=== PATIENT | female | born 1935 | race Caucasian/White ===

== ENCOUNTER 2023-08-20 23:24 | Inpatient (IN) ==
--- NOTE | 2023-08-21 00:21 | Emergency Department Note ---
Impression & Plan CHI (closed head injury), Atrial fibrillation, Radius distal fracture, Bradycardic cardiac arrest, Hematoma, Fall ED Provider Note ED Provider Note NAME: KE LYNN AGE:88 SEX: Female : 1935 ARRIVES VIA: EMS INFORMANT: Patient ED PROVIDER(s): Anel Munoz DO CHIEF COMPLAINT: Fall, head trauma, right wrist injury HPI: This is an 88-year-old female presents emerged department after an axonal fall at home. Patient states she was attempting to close her storm door and had to temporarily let go of her walker which she typically uses for ambulation. After struggling to close this she went to return to her walker and became off balance and fell backwards. Patient states she felt well and in her usual state of health prior to this. Patient concerned as she does take Xarelto due to history of atrial fibrillation. She denies any loss of consciousness. Patient states she has pain at the right wrist and is right-hand dominant. She also has pain at the right hip and right shoulder. PAST MEDICAL HISTORY:See Below PAST SURGICAL HISTORY:See Below FAMILY HISTORY:See Below SOCIAL HISTORY:See Below HOME MEDICATIONS:See Below ALLERGIES:See Below VITALS:See Below PHYSICAL EXAMINATION: GENERAL: alert, well appearing, well nourished, no distress, non-toxic HEAD: nc, small contusion noted to the occipital region, no evidence of facial trauma, no layne signs, no raccoon eyes EYE EXAM: normal conjunctiva, PERRL and EOM's grossly intact OROPHARYNX: no exudate, no erythema, lips, buccal mucosa, and tongue normal and mucous membranes are moist NECK: supple, no nuchal rigidity, no adenopathy, non-tender LUNGS: Clear to auscultation. Normal chest wall mechanics, no w/r/r HEART: no murmurs, S1 normal and S2 normal ABDOMEN: abdomen soft, non-tender, normo-active bowel sounds, no masses, no rebound or guarding. PELVIS: Stable to compression BACK: Back is symmetrical on inspection and there is no deformity, no midline tenderness, no CVA tenderness. SKIN: no rashes, petechiae, orbruising UPPER EXTREMITIES: upper extremities are grossly normal. FROM LUE, nml pulses b/l. Obvious swelling and pain with palpation along radial aspect of wrist and base of right thumb, sensation intact, nml cap refill, no other evidence of trauma or RUE more proximally. LOWER EXTREMITIES: No pitting edema. FROM, nml pulses b/l. Pain with palpation over the posterior aspect of the right hip. Well-healed vertical midline incisions consistent with prior surgeries noted to bilateral knees. Chronic deformities noted to the feet bilaterally and additional well-healed surgical incisions noted from prior foot/ankle surgery as well NEURO EXAM: Normal sensorium, cranial nerves II-XII grossly intact, normal speech, no facial droop,nogross weakness of arms, no gross weakness of legs. Gross sensation intact. No ataxia. Vital Signs: reviewed and remarkable Differential Diagnosis: CHI, ICH, occult fracture, contusion, dislocation, spinal cord injury, solid organ injury, syncope, dehydration, occult infection, LETY, dysrhythmia, as well as others were considered MEDICAL DECISION MAKING: This is an 88 yo female who presents after an accidental at home. She does use xarelto given hx of a.fib and did strike her head. She denied LOC. She was also concerned for right wrist injury. Labs drawn and sent, IV established, EKG and CXR performed and interpreted at bedside, and patient placed on telemetry. She was afebrile and VS stable. She was started on gentle IVF hydration and sent for CT head/xcpinse. Upon return while having xrays performed at bedside, she experienced a brief bradycardic cardiac arrest and quick ROSC and return to baseline mentation. Additional IVF given, atropine and bicarb given, and due to hypotension while continuing to evaluate cause including r/o significant trauma, she was started on levophed. Case discussed with hospitalist and ICU FLYER REPAIRER at bedside. Additional labs, abg, and CT imaging added. Patient remained stable following this and remained at her baseline mentation. She was sent to CT for additional studies on her way to the ICU. Splint placed on right wrist while in the ER prior to transport due to radius fx noted on xray per my interpretation. Patient neurovascularly intact. Consultation(s): 0200: Discussed with Dr. Sweeney and with Fox Montoya NP for additional evaluation and ICU mgmt after cardiac arrest in the ER. ER Treatment Provided: See below 0143: Code blue called after patient was having xrays performed in the room and began to cathleen down and reported to catechist "I'm going out". She became unresponsive and became asystolic. CPR started by staff and code blue called. Patient received 10-15 seconds of chest compressions and regained pulse and consciousness. She was given atropine and bedside and additional IVF started. She had already had CT head/cspine. These were quickly reviewed by myself at bedside and no obvious ICH noted. Patient denied any evolving symptoms upon regarding consciousness. Repeat EKG without changes and patient still in a.fib. She then became more bradycardic and bicarb given and levophed added after discussion with hospitalist and ICU FLYER REPAIRER. BP improved. Given event, POC BMP and POC abg ordered by myself. CT chest/abd/pelvis also added given concern for additional occult trauma although no abdominal pain on bedside exam and POCUS performed by ICU FLYER REPAIRER without any significant findings. Diagnostics Interpreted By Me: -ECG: atrial fibrillation at 63, nml axis, nml intervals, nonspecific ST/T wave changes -Cardiac Monitoring: An order was placed for continuous cardiac monitoring. The monitor shows a rate of 59 with atrial fibrillation rhythm. -Laboratory studies: As stated above and show below. -Imaging studies: X-ray Chest: A single view study of the chest was reviewed and was negative for cardiomegaly, focal infiltrate, effusion, pulmonary edema, or wide mediastinum. No rib fx or pneumothorax. xr pelvis: no obvious fx/dislocation Triage Nursing Note Reviewed Prior/Outside Records Reviewed Critical Care: Critical care of 65 min performed to assess and manage high likelihood of life- threatening cardiac arrest, involving labs and imaging performed with assessment to evaluate cardiac arrest and trauma with frequent reassessment. This time includes bedside time, treatment discussions with patient/family/consultants, documentation time and excludes procedure time. Past Med/Surg History Problem List (Updated 08/22/23 @ 10:29 by Anel Munoz DO) Fall (Acute) Hematoma (Acute) Bradycardic cardiac arrest (Acute) Atrial fibrillation (Acute) Syncope Pulmonary nodule Status post fall Chronic anticoagulation Radius distal fracture (Acute) Admitted to intensive care unit Hypotension Bradycardia Afib CHI (closed head injury) (Acute) Medical History Glaucoma Surgical History History of colon resection Social History Smoking Status: Unknown if ever smoked Hx Alcohol Use: Yes Alcohol type: beer and wine Hx Substance Use: No Preferred Language: Yi Communication Ability: Effective Law Tutor Required: No Beliefs That Will Affect Care: None Current Living Situation: Spouse Feels Safe at Home: Yes Assistive Devices: Glasses, Walker and Wheelchair Allergies Allergies Allergy/AdvReac Type Severity Reaction Status Date / Time Penicillins Allergy Unknown Verified 08/21/23 01:31 Sulfa (Sulfonamide Allergy Unknown Verified 08/21/23 01:31 Antibiotics) Home Meds Home Medications Medication Instructions Recorded Confirmed brimonidine 0.1 % eye drops 1 drp OPB .IN AM & DINNERTIME 08/21/23 08/21/23 dronedarone 400 mg tablet (Multaq) 400 mg PO BID 08/21/23 08/21/23 lisinopril 10 mg tablet 10 mg PO HS 08/21/23 08/21/23 rivaroxaban 15 mg tablet (Xarelto) 15 mg PO DAILY 08/21/23 08/21/23 Results & Data (ED) Vital Signs Vital Signs - 24 hr 08/20/23 23:55 08/21/23 00:01 Temperature 36.4 C L Temperature Source Oral Pulse Rate 65 66 Pulse Rhythm Regular Pulse Strength Normal Respiratory Rate 21 Respiratory Effort / Characteristics Non-Labored Respiratory Depth Normal Respiratory Pattern Regular Blood Pressure 138/83 Blood Pressure Mean 101 Blood Pressure Position Lying Pulse Oximetry 94 Oxygen Delivery Method Room Air Sepsis Recent Fever Within 48 Hours No Sepsis New/Unexplained Change in Mental Status N/A Sepsis Action Taken by Nursing No Action Required Laboratory Data 08/22/23 04:47 08/22/23 04:47 Lab Results 08/21/23 08/21/23 Range/Units 00:40 02:06 WBC 5.99 (4.8-10.8) K/ul RBC 4.00 L (4.20-5.40) M/uL Hgb 13.5 (12.0-16.0) g/dl POC Hgb 10.2 L (12.0-16.0) g/dl Hct 40.5 (37.0-47.0) % POC Hct 30 L (37-47) % MCV 101.3 H (80.0-100.0) fL MCH 33.8 (25.0-34.0) pg MCHC 33.3 (32.0-36.0) g/dL RDW Std Deviation 52.2 H (36.4-46.3) fL RDW Coeff of Jordan 14.0 (11.5-14.5) % Plt Count 180 (130-400) K/uL MPV 10.4 (9.4-12.4) fL Immature Gran % (Auto) 1.0 % Neut % (Auto) 65.0 % Lymph % (Auto) 24.7 % [place] % (Auto) 7.0 % Eos % (Auto) 1.3 % Baso % (Auto) 1.0 % Neut # (Auto) 3.89 (1.40-6.50) K/uL Lymph # (Auto) 1.48 (1.20-3.40) K/uL [place] # (Auto) 0.42 (0.11-0.59) K/uL Eos # (Auto) 0.08 (0.00-0.50) K/uL Baso # (Auto) 0.06 (0.00-0.20) K/uL Immature Gran # (Auto) 0.06 (0.01-0.20) K/uL PT 11.8 (9.0-12.0) Seconds INR 1.1 (0.9-1.1) POC pH 7.44 (7.35-7.45) POC pCO2 38 (35-46) mmHg POC pO2 124 H (80-95) mmHg POC HCO3 26 H (19-24) walter/L POC Total CO2 27 (24-31) mmol/L POC Base Excess 1.0 (-9-1.8) walter/L POC ABG O2 Sat 99.0 H (90-95) % POC Sodium 143 (135-144) mmol/L Sodium 140 (136-145) mmol/L POC Potassium 3.6 (3.3-5.0) mmol/L Potassium 4.5 (3.5-5.1) mmol/L Chloride 106 (98-107) mmol/L Carbon Dioxide 25 (21-32) mmol/L Anion Gap 9 (3-11) BUN 29 H (6-23) mg/dl Creatinine 0.97 (0.6-1.2) mg/dl Est Cr Clr Drug Dosing 38.3 ml/min Est GFR ( Amer) 60.0 ml/min Est GFR (Non-Af Amer) 51.8 ml/min BUN/Creatinine Ratio 29.9 H (10-20) Glucose 107 H (70-99(Fasting)) mg/dl Calcium 10.1 (8.6-10.3) mg/dl Total Bilirubin 0.5 (0.2-1.0) mg/dl AST 18 (13-39) U/L ALT 9 (7-52) U/L Alkaline Phosphatase 83 (34-104) U/L Troponin I High Sens 5.5 (0-14) pg/ml Total Protein 6.6 (6.0-8.3) gm/dl Albumin 3.9 (3.4-5.0) gm/dl Globulin 2.7 (2.5-4.0) gm/dl Albumin/Globulin Ratio 1.4 (0.9-2) TSH 2.734 (0.300-4.500) uIu/ml Administered Medications Acetaminophen (Acetaminophen 500 Mg Tab) 500 mg PO Q4H PRN PRN Reason: Pain or Fever Stop: 09/20/23 12:55 Last Admin: 08/22/23 08:33 Dose: 500 mg Documented By: Admin: 08/21/23 21:58 Dose: 500 mg Documented By: Admin: 08/21/23 13:11 Dose: 500 mg Documented By: GABRIELA Azelastine HCl (Azelastine Hcl 0.1% Nasal 200 Sprays/27,400 Mcg Btl) 1 sprays NA BID [facility] Stop: 09/20/23 20:59 Last Admin: 08/22/23 08:35 Dose: 1 sprays Documented By: Admin: 08/21/23 20:29 Dose: 1 sprays Documented By: TEVIN Brimonidine Tartrate (Brimonidine Tar 0.1% 75 Drops/5 Ml Btl) 1 drops OP BID17 [facility] Stop: 09/20/23 17:29 Last Admin: 08/22/23 08:34 Dose: 1 drops Documented By: Admin: 08/21/23 17:18 Dose: 1 drops Documented By: GABRIELA Lidocaine (Lidocaine 5% 1 Patch) 1 patch TD QAM [facility] Stop: 09/20/23 17:29 Last Admin: 08/22/23 08:20 Dose: 1 patch Documented By: Admin: 08/21/23 18:26 Dose: 1 patch Documented By: GABRIELA Miscellaneous (Remove Lidoderm Patch) 1 each N/A DAILY@2100 ENRIQUE Stop: 09/20/23 20:59 Last Admin: 08/21/23 20:30 Dose: 1 each Documented By: TEVIN Oxymetazoline HCl (Oxymetazoline 0.05% 30 Ml Btl) 1 sprays NA BID PRN PRN Reason: Nasal Congestion Stop: 09/20/23 11:27 Last Admin: 08/21/23 13:11 Dose: 1 sprays Documented By: GABRIELA Discontinued Medications Diphenhydramine HCl (Diphenhydramine 50 Mg/Ml Vial) 25 mg IV NOW STA Stop: 08/21/23 03:10 Last Admin: 08/21/23 05:33 Dose: Not Given Documented By: REGINALD Dronedarone (Dronedarone Hcl 400 Mg Tab) 400 mg PO BID ENRIQUE Stop: 09/20/23 08:59 Last Admin: 08/21/23 08:17 Dose: 400 mg Documented By: GABRIELA Sodium Chloride (Nss) 1,000 mls @ 999 mls/hr IV .Q1H1M ONE Stop: 08/21/23 02:54 Last Infusion: 08/21/23 03:00 Dose: Infused Documented By: Admin: 08/21/23 01:50 Dose: 999 mls/hr Documented By: NAVNEET Norepinephrine Bitartrate (Levophed/D5w) 4 mg in 250 mls @ 0 mls/hr IV .Q0M ENRIQUE; Protocol Stop: 09/20/23 01:59 Last Titration: 08/21/23 10:23 Dose: Infused Documented By: Titration: 08/21/23 03:45 Dose: 0 mcg/kg/min, 0 mls/hr Documented By: Titration: 08/21/23 03:30 Dose: 0.03 mcg/kg/min, 8.9 mls/hr Documented By: Admin: 08/21/23 01:50 Dose: 0.05 mcg/kg/min, 14.8 mls/hr Documented By: NAVNEET Co-signed By: RUBA Parenteral Electrolytes (Plasma-Lyte A Ph 7.4) 500 mls @ 999 mls/hr IV .Q31M ONE Stop: 08/21/23 04:05 Last Infusion: 08/21/23 04:10 Dose: Infused Documented By: Admin: 08/21/23 03:30 Dose: 999 mls/hr Documented By: REGINALD Parenteral Electrolytes (Plasma-Lyte A Ph 7.4) 1,000 mls @ 100 mls/hr IV .Q10H ENRIQUE Stop: 09/20/23 03:44 Last Infusion: 08/21/23 10:23 Dose: Infused Documented By: Admin: 08/21/23 09:32 Dose: 100 mls/hr Documented By: Infusion: 08/21/23 09:32 Dose: Infused Documented By: Admin: 08/21/23 04:11 Dose: 100 mls/hr Documented By: REGINALD Ioversol (Optiray 320 100ml) 100 ml IV ONCE ONE Stop: 08/21/23 03:15 Last Admin: 08/21/23 03:14 Dose: 92 ml Documented By: AMALIA Carlisle (Alphagan~Order Awaiting Action) 1 each N/A QS ENRIQUE Stop: 09/20/23 07:59 Last Admin: 08/21/23 17:10 Dose: Not Given Documented By: Admin: 08/21/23 08:22 Dose: Not Given Documented By: GABRIELA Carlisle (Icu Protocol For Hyperglycemia) 1 each N/A ACHS ENRIQUE Stop: 08/23/23 07:29 Last Admin: 08/21/23 08:06 Dose: Not Given Documented By: GABRIELA Norepinephrine Bitartrate (Norepinephrine/D5w 4 Mg/250 Ml) Confirm Administered Dose 4 mg IV .STK-MED ONE Stop: 08/21/23 01:54 Last Admin: 08/21/23 02:59 Dose: Not Given Documented By: AN Discharge Plan Visit Data Chief Complaint: Fall Stated Complaint: FELL, HIT HEAD, WRIST DEFORMITY ED Provider: Anel Munoz Discharge Problem: CHI (closed head injury), Atrial fibrillation, Radius distal fracture, Bradycardic cardiac arrest, Hematoma, Fall Patient Disposition: Admitted As Inpatient Discharge Instructions Interventions: ED Discharge Assessment Last Done: 08/21/23 03:34
[2023-08-21 00:59] LABS: Basophils # (auto) 0.06 K/uL (0.00-0.20); Eosinophils # (auto) 0.08 K/uL (0.00-0.50); Eosinophils % (auto) 1.3 %; Hematocrit (blood only) 40.5 % (37.0-47.0); Hemoglobin 13.5 g/dl (12.0-16.0); Immature Granulocytes # (auto) 0.06 K/uL (0.01-0.20); Lymphocytes # (auto) 1.48 K/uL (1.20-3.40); Lymphocytes % (auto) 24.7 %; Mean Corpuscular Hemoglobin 33.8 pg (25.0-34.0); Mean Corpuscular Hgb Conc 33.3 g/dL (32.0-36.0); Mean Corpuscular Volume 101.3 fL (80.0-100.0); Mean Platelet Volume 10.4 fL (9.4-12.4); Monocytes # (auto) 0.42 K/uL (0.11-0.59); Neutrophils # (auto) 3.89 K/uL (1.40-6.50); Platelet Count 180 K/uL (130-400); RDW Standard Deviation 52.2 fL (36.4-46.3); White Blood Count 5.99 K/ul (4.8-10.8)
[2023-08-21 01:15] LABS: Albumin Globulin Ratio 1.4 (0.9-2); Albumin Level 3.9 gm/dl (3.4-5.0); BUN Creatinine Ratio 29.9 (10-20); Bilirubin,Total 0.5 mg/dl (0.2-1.0); Calcium 10.1 mg/dl (8.6-10.3); Creatinine Clr Calc Pharmacy 38.3 ml/min; Est GFR (Non-African American) 51.8 ml/min; Globulin 2.7 gm/dl (2.5-4.0); Potassium 4.5 mmol/L (3.5-5.1); Total Protein 6.6 gm/dl (6.0-8.3)
[2023-08-21 01:21] LABS: Troponin I High Sensitivity 5.5 pg/ml (0-14)
--- NOTE | 2023-08-21 01:27 | CT Scan Report ---
Exam(s): CT C SPINE EXAM: CT Cervical Spine Without Intravenous Contrast CLINICAL HISTORY: Reason for exam: trauma. TECHNIQUE: Axial computed tomography images of the cervical spine without intravenous contrast. CTDI is 26.61 mGy and DLP is 489.32 mGy-cm. Automated exposure control was utilized for the study. A dose lowering technique was utilized adhering to the principles of ALARA. COMPARISON: No relevant prior studies available. FINDINGS: The vertebral body heights are maintained. The craniocervical junction is intact. The atlanto-dens interval is maintained. The dens is intact. There is no spondylolisthesis. Multilevel cervical spondylosis and degenerative disc disease. Straightening of the cervical lordosis. The unenhanced neck soft tissues are grossly unremarkable. The visualized lung apices are grossly clear. IMPRESSION: No acute fracture or subluxation of the cervical spine. Electronically signed by: Levi Shelby MD 08/21/23 01:26 AM
--- NOTE | 2023-08-21 01:28 | CT Scan Report ---
Exam(s): CT HEAD Without Contrast EXAM: CT Head Without Intravenous Contrast CLINICAL HISTORY: Reason for exam: trauma. TECHNIQUE: Axial computed tomography images of the head/brain without intravenous contrast. CTDI is 37.32 mGy and DLP is 624.41 mGy-cm. Automated exposure control was utilized for the study. A dose lowering technique was utilized adhering to the principles of ALARA. COMPARISON: No relevant prior studies available. FINDINGS: No acute intracranial hemorrhage. No midline shift or mass effect. The territorial gonzales-white matter differentiation is maintained throughout. Age-related cerebral volume loss. Periventricular and subcortical white matter hypoattenuation, consistent with chronic microangiopathy. The visualized orbits appear grossly unremarkable. The calvarium is intact. The visualized paranasal sinuses and mastoid air cells are grossly clear. IMPRESSION: No acute intracranial hemorrhage, midline shift, or mass effect. Electronically signed by: Levi Shelby MD 08/21/23 01:27 AM
[2023-08-21 01:34] LABS: INR 1.1 (0.9-1.1); Prothrombin Time 11.8 Seconds (9.0-12.0)
[2023-08-21] MEDS: SODIUM CHLORIDE 0.9% 1,000 ML IV ONE (01:50)
[2023-08-21] MEDS: NOREPINEPHRINE/D5W 4 MG/250 ML PLCT IV SCH (01:50)
[2023-08-21] MEDS ORDERED: STAT IV Infusion **Titration per Protocol STA (01:56)
--- NOTE | 2023-08-21 02:11 | History & Physical Report ---
Date of Service August 21, 2023 Assessment & Plan (1) Hypotension: (2) Bradycardia: (3) Admitted to intensive care unit: (4) Afib: (5) CHI (closed head injury): (6) Radius distal fracture: (7) Chronic anticoagulation: (8) Status post fall: (9) Pulmonary nodule: Plan Admitted to intensive care unit/bradycardic episode/atrial fibrillation- Required chest compressions to restore heart rate After episcopal, patient had heart rate in the upper 60s to low 70s Patient then minutes later became hypotensive with systolic blood pressure in the 50s to 60s. She was given 1 amp of sodium bicarbonate, 1 L normal saline bolus, and started on Levophed infusion. Patient's blood pressure did return to the 110s to 130s systolic, and was then moved to the ICU, with CT scans en route Will continue dronedarone 400 mg p.o. twice daily, and Xarelto 15 mg p.o. daily Hold lisinopril 10 mg at bedtime The patient will be admitted to the ICU for serial cardiac enzymes, serial EKG's, cardiac rhythm monitoring and a 2-D echocardiogram with Dopplers. CT head without contrast showed chronic small vessel disease CT cervical spine negative Chest x-ray hazy left lower lobe monitor for development of pneumonia X-ray pelvis and hips negative X-ray of radius and ulna shows distal radius fracture Consult to renal dialysis rn and cardiology Distal right radius fracture- Place in splint Follow-up with orthopedics Glaucoma- Continue brimonidine ophthalmic solution Right upper lobe pulmonary nodule- 6 x 5 mm Follow-up per protocol History of Present Illness Chief Complaint: The patient presents to the emergency department after an accidental fall at home, where she was attempting to close her storm door, and lost her balance as she temporarily let go of her walker, and ultimately fell backwards, landing on her buttocks, and hitting the back of her head Primary Care Provider: NO PCP The patient is a 88-year-old female with medical history including atrial fibrillation on chronic anticoagulation, hypertension, and glaucoma. She reports having recently moved to the area. She presents to the emergency department after a fall as noted above. She became concerned about potential injury, due to being on a blood thinner Xarelto. She has had no history of previous falls. Allergies Allergy/AdvReac Type Severity Reaction Status Date / Time Penicillins Allergy Unknown Verified 05/29/24 01:31 Sulfa (Sulfonamide Allergy Unknown Verified 08/21/23 01:31 Antibiotics) Home Medications Medication Instructions Recorded Confirmed Type brimonidine 0.1 % eye drops 1 drp OPB .IN AM & DINNERTIME 08/21/23 08/21/23 History dronedarone 400 mg tablet (Multaq) 400 mg PO BID 08/21/23 08/21/23 History lisinopril 10 mg tablet 10 mg PO HS 08/21/23 08/21/23 History rivaroxaban 15 mg tablet (Xarelto) 15 mg PO DAILY 08/21/23 08/21/23 History Past Med/Surg History Problem List (Updated 08/21/23 @ 05:51 by Alberto Sweeney MD) Pulmonary nodule Status post fall Chronic anticoagulation Radius distal fracture Admitted to intensive care unit Hypotension Bradycardia Afib CHI (closed head injury) (Acute) Medical History (Updated 08/21/23 @ 05:51 by Alberto Sweeney MD) Glaucoma Surgical History (Updated 08/21/23 @ 02:35 by [place]) History of colon resection Social History Smoking Status: Unknown if ever smoked Hx Alcohol Use: Yes Alcohol type: beer and wine Hx Substance Use: No Preferred Language: Mauritian Communication Ability: Effective Welt Edge Rounder Required: No Beliefs That Will Affect Care: None Current Living Situation: Spouse Other Information That Helps Us Care for You: No Feels Safe at Home: Yes Safety Concerns: Feels Safe At This Time Assistive Devices: Glasses, Walker and Wheelchair Review of Systems Review of Systems: The patient denies chest pain, palpitations, shortness of breath, dyspnea on exertion, cough, lower extremity swelling, sore throat, fevers, chills, sweats, nausea, vomiting, diarrhea , constipation, abdominal pain, pelvic pain, blood in urine or stool, dysuria, urinary frequency or urgency, lightheadedness, dizziness, headache, memory loss, loss of consciousness, rash, abnormal bruising or bleeding, focal weakness, numbness or tingling in arms or legs, generalized arthralgias or myalgias, back or neck pain, or night sweats. The review of systems is otherwise negative other than for that already noted above, and at least 10 systems have been reviewed. Physical Exam Physical Exam: The patient is awake, alert and oriented 3, well developed and well nourished, normocephalic and atraumatic. HEENT--PERRL, EOMI, mucous membranes and oropharynx dry. Neck--supple. No JVD. No bruits. Thyroid normal, trachea midline, no adenopathy. Heart--irregularly irregular. No murmurs, rubs or gallops. Lungs--clear bilaterally, no respiratory distress, no accessory muscle use. Abdomen--normal bowel sounds and soft. Nontender. Nondistended. Extremities--no cyanosis or clubbing. No edema. There are good distal pulses b/l. Dermatologic--normal skin turgor, normal color, no abnormal lymph nodes, no rash. Neurologic--cranial nerves II through XII grossly intact. Rheumatologic--normal range of motion. Psychiatric--normal affect. Results & Data Results & Data Vital Signs (Past 12 Hours) Vital Signs Temp Pulse Resp BP Pulse Ox O2 Del Method 08/21/23 01:21 71 08/21/23 01:18 0 L 08/21/23 01:18 0 L 08/21/23 00:01 36.4 C L 66 21 138/83 94 Room Air 08/20/23 23:55 65 Laboratory Results Laboratory Results WBC 10.07 K/ul (4.8-10.8) 08/21/23 04:31 RBC 3.32 M/uL (4.20-5.40) L 08/21/23 04:31 Hgb 11.4 g/dl (12.0-16.0) L 08/21/23 04:31 POC Hgb 10.2 g/dl (12.0-16.0) L 08/21/23 02:06 Hct 34.0 % (37.0-47.0) L 08/21/23 04:31 POC Hct 30 % (37-47) L 08/21/23 02:06 MCV 102.4 fL (80.0-100.0) H 08/21/23 04:31 MCH 34.3 pg (25.0-34.0) H 08/21/23 04:31 MCHC 33.5 g/dL (32.0-36.0) 08/21/23 04:31 RDW Std Deviation 52.4 fL (36.4-46.3) H 08/21/23 04:31 RDW Coeff of [place] 14.0 % (11.5-14.5) 08/21/23 04:31 Plt Count 142 K/uL (130-400) 08/21/23 04:31 MPV 10.2 fL (9.4-12.4) 08/21/23 04:31 Immature Gran % (Auto) 1.1 % 08/21/23 04:31 Neut % (Auto) 86.6 % 08/21/23 04:31 Lymph % (Auto) 7.2 % 08/21/23 04:31 [place] % (Auto) 4.7 % 08/21/23 04:31 Eos % (Auto) 0.1 % 08/21/23 04:31 Baso % (Auto) 0.3 % 08/21/23 04:31 Neut # (Auto) 8.72 K/uL (1.40-6.50) H 08/21/23 04:31 Lymph # (Auto) 0.73 K/uL (1.20-3.40) L 08/21/23 04:31 [place] # (Auto) 0.47 K/uL (0.11-0.59) 08/21/23 04:31 Eos # (Auto) 0.01 K/uL (0.00-0.50) 08/21/23 04:31 Baso # (Auto) 0.03 K/uL (0.00-0.20) 08/21/23 04:31 Immature Gran # (Auto) 0.11 K/uL (0.01-0.20) 08/21/23 04:31 PT 12.3 Seconds (9.0-12.0) H 08/21/23 04:31 INR 1.1 (0.9-1.1) 08/21/23 04:31 APTT 27 Seconds (21-31) 08/21/23 04:31 PTT Ratio 1.0 08/21/23 04:31 POC pH 7.44 (7.35-7.45) 08/21/23 02:06 POC pCO2 38 mmHg (35-46) 08/21/23 02:06 POC pO2 124 mmHg (80-95) H 08/21/23 02:06 POC HCO3 26 walter/L (19-24) H 08/21/23 02:06 POC Total CO2 27 mmol/L (24-31) 08/21/23 02:06 POC Base Excess 1.0 walter/L (-9-1.8) 08/21/23 02:06 POC ABG O2 Sat 99.0 % (90-95) H 08/21/23 02:06 POC Sodium 143 mmol/L (135-144) 08/21/23 02:06 Sodium 140 mmol/L (136-145) 08/21/23 04:31 POC Potassium 3.6 mmol/L (3.3-5.0) 08/21/23 02:06 Potassium 4.0 mmol/L (3.5-5.1) 08/21/23 04:31 Chloride 107 mmol/L (98-107) 08/21/23 04:31 Carbon Dioxide 27 mmol/L (21-32) 08/21/23 04:31 Anion Gap 6 (3-11) 08/21/23 04:31 BUN 24 mg/dl (6-23) H 08/21/23 04:31 Creatinine 0.82 mg/dl (0.6-1.2) 08/21/23 04:31 Est Cr Clr Drug Dosing 45.3 ml/min 08/21/23 04:31 Est GFR ( Amer) 73.5 ml/min 08/21/23 04:31 Est GFR (Non-Af Amer) 63.4 ml/min 08/21/23 04:31 BUN/Creatinine Ratio 29.3 (10-20) H 08/21/23 04:31 Glucose 136 mg/dl (70-99(Fasting)) H 08/21/23 04:31 POC Glucose 149 mg/dl (70-99) H 08/21/23 04:36 Calcium 9.2 mg/dl (8.6-10.3) 08/21/23 04:31 Magnesium 1.8 mg/dl (1.7-2.4) 08/21/23 04:31 Total Bilirubin 0.6 mg/dl (0.2-1.0) 08/21/23 04:31 AST 16 U/L (13-39) 08/21/23 04:31 ALT 11 U/L (7-52) 08/21/23 04:31 Alkaline Phosphatase 77 U/L (34-104) 08/21/23 04:31 Troponin I High Sens 6.9 pg/ml (0-14) 08/21/23 04:31 Total Protein 5.4 gm/dl (6.0-8.3) L 08/21/23 04:31 Albumin 3.4 gm/dl (3.4-5.0) 08/21/23 04:31 Globulin 2.0 gm/dl (2.5-4.0) L 08/21/23 04:31 Albumin/Globulin Ratio 1.7 (0.9-2) 08/21/23 04:31 TSH 2.734 uIu/ml (0.300-4.500) 08/21/23 00:[address] 08/21/23 00:10 Exam(s): CT C SPINE EXAM: CT Cervical Spine Without Intravenous Contrast CLINICAL HISTORY: Reason for exam: trauma. TECHNIQUE: Axial computed tomography images of the cervical spine without intravenous contrast. CTDI is 26.61 mGy and DLP is 489.32 mGy-cm. Automated exposure control was utilized for the study. A dose lowering technique was utilized adhering to the principles of ALARA. COMPARISON: No relevant prior studies available. FINDINGS: The vertebral body heights are maintained. The craniocervical junction is intact. The atlanto-dens interval is maintained. The dens is intact. There is no spondylolisthesis. Multilevel cervical spondylosis and degenerative disc disease. Straightening of the cervical lordosis. The unenhanced neck soft tissues are grossly unremarkable. The visualized lung apices are grossly clear. IMPRESSION: No acute fracture or subluxation of the cervical spine. Electronically signed by: Levi Shelby MD 08/21/23 01:[address] 08/21/23 00:10 Exam(s): CT HEAD Without Contrast EXAM: CT Head Without Intravenous Contrast CLINICAL HISTORY: Reason for exam: trauma. TECHNIQUE: Axial computed tomography images of the head/brain without intravenous contrast. CTDI is 37.32 mGy and DLP is 624.41 mGy-cm. Automated exposure control was utilized for the study. A dose lowering technique was utilized adhering to the principles of ALARA. COMPARISON: No relevant prior studies available. FINDINGS: No acute intracranial hemorrhage. No midline shift or mass effect. The territorial gonzales-white matter differentiation is maintained throughout. Age-related cerebral volume loss. Periventricular and subcortical white matter hypoattenuation, consistent with chronic microangiopathy. The visualized orbits appear grossly unremarkable. The calvarium is intact. The visualized paranasal sinuses and mastoid air cells are grossly clear. IMPRESSION: No acute intracranial hemorrhage, midline shift, or mass effect. Electronically signed by: Levi Shelby MD 08/21/23 01:27 AM Abdomen/Pelvis CT 08/21/23 01:31 Exam(s): CT ABDOMEN + PELVIS With Contrast IV Amt: 93 ml optiray 320 EXAM: CT Chest, Abdomen and Pelvis With Intravenous Contrast CLINICAL HISTORY: Reason for exam: trauma. TECHNIQUE: Axial computed tomography images of the chest, abdomen and pelvis with intravenous contrast. CTDI is 27.93 mGy and DLP is 1195.03 mGy-cm. Automated exposure control was utilized for the study. A dose lowering technique was utilized adhering to the principles of ALARA. CONTRAST: Patient received 93 ml optiray 320 of IV contrast COMPARISON: No relevant prior studies available. FINDINGS: CHEST: Lungs: Right upper lobe pulmonary nodule measuring 6 x 5 mm as seen on series 2, image 31. Scattered areas of air-trapping within the lungs. Findings may be due to phase of expiration. Obstructive pulmonary disease is also possible. Dependent scarring and bronchiectasis at the lung bases which can be seen with infection/aspiration changes. Pleural space: No pneumothorax. No significant effusion. Heart: See below. Mediastinum: Large hiatal hernia. ABDOMEN: Liver: Low attenuation foci in the liver which may be due to cysts but are too small to characterize. Gallbladder and bile ducts: Cholecystectomy changes. No ductal dilation. Pancreas: Unremarkable. No ductal dilation. No mass. Spleen: Unremarkable. No splenomegaly. Adrenals: Unremarkable. No mass. Kidneys and ureters: Bilateral renal cysts mixed. No hydronephrosis. No solid mass. Stomach and bowel: Normal sigmoidectomy changes. Large fat and bowel containing ventral hernia noted overlying the pelvis. No evidence of bowel obstruction. PELVIS: Appendix: No findings to suggest acute appendicitis. Bladder: Unremarkable. No mass. Reproductive: Unremarkable as visualized. CHEST, ABDOMEN and PELVIS: Intraperitoneal space: Enteric anastomosis in the left hemiabdomen. No significant fluid collection. No free air. Bones/joints: Suture anchors at the right humerus. No rib fracture identified. No dislocation. Soft tissues: See above. Vasculature: No evidence of traumatic aortic injury. Please note that the ascending aorta is minimally limited by cardiac pulsation artifact. No aortic aneurysm. Lymph nodes: Unremarkable. No enlarged lymph nodes. IMPRESSION: 1. No acute traumatic findings within the chest, abdomen, or pelvis. If there is further concern for osseous trauma given bone demineralization, consider MRI. 2. No rib fracture identified. 3. No pneumothorax. 4. No evidence of traumatic aortic injury. Please note that the ascending aorta is minimally limited by cardiac pulsation artifact. 5. Right upper lobe pulmonary nodule measuring 6 x 5 mm as seen on series 2, image 31. Fleischner Society Guidelines for low-risk or high- risk patients suggest that no follow-up is necessary. 6. Dependent scarring and bronchiectasis at the lung bases which can be seen with infection/aspiration changes. 7. Other incidental findings as described. Electronically signed by: Jorgito Gutierrez MD 08/21/23 04:[address] 08/21/23 01:31 Exam(s): CT CHEST With Contrast IV Amt: 93 ml optiray 320 EXAM: CT Chest, Abdomen and Pelvis With Intravenous Contrast CLINICAL HISTORY: Reason for exam: trauma. TECHNIQUE: Axial computed tomography images of the chest, abdomen and pelvis with intravenous contrast. CTDI is 27.93 mGy and DLP is 1195.03 mGy-cm. Automated exposure control was utilized for the study. A dose lowering technique was utilized adhering to the principles of ALARA. CONTRAST: Patient received 93 ml optiray 320 of IV contrast COMPARISON: No relevant prior studies available. FINDINGS: CHEST: Lungs: Right upper lobe pulmonary nodule measuring 6 x 5 mm as seen on series 2, image 31. Scattered areas of air-trapping within the lungs. Findings may be due to phase of expiration. Obstructive pulmonary disease is also possible. Dependent scarring and bronchiectasis at the lung bases which can be seen with infection/aspiration changes. Pleural space: No pneumothorax. No significant effusion. Heart: See below. Mediastinum: Large hiatal hernia. ABDOMEN: Liver: Low attenuation foci in the liver which may be due to cysts but are too small to characterize. Gallbladder and bile ducts: Cholecystectomy changes. No ductal dilation. Pancreas: Unremarkable. No ductal dilation. No mass. Spleen: Unremarkable. No splenomegaly. Adrenals: Unremarkable. No mass. Kidneys and ureters: Bilateral renal cysts mixed. No hydronephrosis. No solid mass. Stomach and bowel: Normal sigmoidectomy changes. Large fat and bowel containing ventral hernia noted overlying the pelvis. No evidence of bowel obstruction. PELVIS: Appendix: No findings to suggest acute appendicitis. Bladder: Unremarkable. No mass. Reproductive: Unremarkable as visualized. CHEST, ABDOMEN and PELVIS: Intraperitoneal space: Enteric anastomosis in the left hemiabdomen. No significant fluid collection. No free air. Bones/joints: Suture anchors at the right humerus. No rib fracture identified. No dislocation. Soft tissues: See above. Vasculature: No evidence of traumatic aortic injury. Please note that the ascending aorta is minimally limited by cardiac pulsation artifact. No aortic aneurysm. Lymph nodes: Unremarkable. No enlarged lymph nodes. IMPRESSION: 1. No acute traumatic findings within the chest, abdomen, or pelvis. If there is further concern for osseous trauma given bone demineralization, consider MRI. 2. No rib fracture identified. 3. No pneumothorax. 4. No evidence of traumatic aortic injury. Please note that the ascending aorta is minimally limited by cardiac pulsation artifact. 5. Right upper lobe pulmonary nodule measuring 6 x 5 mm as seen on series 2, image 31. Fleischner Society Guidelines for low-risk or high- risk patients suggest that no follow-up is necessary. 6. Dependent scarring and bronchiectasis at the lung bases which can be seen with infection/aspiration changes. 7. Other incidental findings as described. Electronically signed by: Jorgito Gutierrez MD 08/21/23 04:54 AM Code Status & VTE Plan Code Status Full code VTE Prophylaxis Plan VTE Prophylaxis will be ordered: Yes PG Care Time/CCT Total # of Minutes Spent Total Time Spent with Patient: Total time spent is greater than 50% in coordination of care (as documented) at patient's floor/unit and/or counseling patient: 45 minutes Coding Level of Care Code 31023 INT INP/OBS CARE 3/75MIN Diagnoses Hypotension I95.9 Bradycardia R00.1 Admitted to intensive care unit Z78.9 Afib I48.91 CHI (closed head injury) S09.90XA Radius distal fracture S52.509A Chronic anticoagulation Z79.01 Status post fall Z91.81 Pulmonary nodule R91.1
[2023-08-21 02:21] LABS: iSTAT Arterial Blood Gas HCO3 26 meg/L (19-24); iSTAT Arterial Blood Gas pCO2 38 mmHg (35-46); iSTAT Arterial Blood Gas pH 7.44 (7.35-7.45); iSTAT Arterial Blood Gas pO2 124 mmHg (80-95); iSTAT Carbon Dioxide 27 mmol/L (24-31); iSTAT Hematocrit 30 % (37-47); iSTAT Hemoglobin 10.2 g/dl (12.0-16.0); iSTAT Potassium 3.6 mmol/L (3.3-5.0); iSTAT Sodium 143 mmol/L (135-144)
--- NOTE | 2023-08-21 02:48 | Critical Care Consultation ---
Date of Consultation August 21, 2023 Assessment & Plan (1) Bradycardia: (2) Hypotension: Plan Reason Critically Ill: 88 to the ICU for syncopal/symptomatic bradycardic arrest in the EMD now on vasopressor agent Neuro - S/p Fall to back with head strike CAM ICU: Negative - no focal deficits on exam and conversing normal - head CT negative for acute bleed - follow neurological exams for DASH Cardiac - Symptomatic bradycardia, Hypotension, Afib, chronic anticoagulation - Juan 50s when I arrived and she was awake and talking- she received 1 dose of Atropine with HR back to the 80's/90s - Hypotensive while in EMD requiring initiation of vasopressors- reported 80s/50s- POCUS consistent with hypovolemia- provide crystalloid resuscitation - No pericardial effusion noted on POCUS - ECHO in am - TSH pending - Appreciate cardiology consultation - for her Afib- continue Multaq -- hold xarelto - pending official CT read, however with hematoma on right buttocks on imaging. - ECG is without STEMI Respiratory - No acute needs GI - No acute needs RENAL/LYTES - No acute needs - acid base status normal as well as renal indices - No acute needs - eval urine for possible UTI ENDO - No acute needs - BG goal <180mg/dl- ICU hyperglycemic protocol HEME - No acute needs - follow for evidence of bleeding post fall while on blood thinners - noted hematoma right buttocks ID - NO concern at this time for infective process =- send UA LINES/IV ACCESS - PIV Continue use of these lines DVT PROPHYLAXIS - SCDS, Xarelto DISPO : ICU while on vasopressors I have personally spent 50 minutes of critical care time in the direct management of this patient. This is a life/limb threatening event. This includes time spent evaluating patient, direct bedside care, chart review, placing orders, interpretation of diagnostic studies, discussion with consultants, patient, and family members, as well as other required patient management activities. This time is exclusive of all separately billable procedures, and teaching time and separate from and in addition to any other critical care service time. Thank you for allowing us to participate in the care of this patient. Please refer to my attending physician's documentation for any further recommendations. 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 Patient originally presented to the EMD following a fall backwards at home. She reports that she tripped while trying to reach her walker after shutting the screen door. While she was in the EMD she was noted to syncope and be in bradycardic rythm as well, she received a few CPR pushes and was noted to have a pulse and rythm. She required 1 mg of Atropine and was awake and talking. She initially was worked up with head CT, plain films of wrist, shoulder, hip/pelvis, and CXR. All all negative for bleed and or acute fracture/pneumothorax. Patient reports no symptoms of chest pain at home or feeling as she was going to pass out. She does endorse prior to [facility] being called she told the nurse that she felt like she was "going out" she got cold and shaky and vision started getting fuzzy. She is currently awake, moving all extremities on 4LNC. SHe remained hypotensive in the EMD and was initiated on Levophed for hypotension. She is no longer bradycardic at this point in time. Bedside POCUS performed in the EMD- she is without pericardial effusion, wall motion appears adequate with afib, lung slide is present bilaterally. She does however appear hypovolemic with compressible IVC and hyperdynamic LV. Patient will be admitted to the ICU for continued telemetry and hemodynamic monitoring, continue resuscitation and wean vasopressor agents. Pending ECHO in the am. CODE: FULL Allergies Allergy/AdvReac Type Severity Reaction Status Date / Time Penicillins Allergy Unknown Verified 08/21/23 01:31 Sulfa (Sulfonamide Allergy Unknown Verified 08/21/23 01:31 Antibiotics) Home Medications Medication Instructions Recorded Confirmed Type brimonidine 0.1 % eye drops 1 drp OPB .IN AM & DINNERTIME 08/21/23 08/21/23 History dronedarone 400 mg tablet (Multaq) 400 mg PO BID 08/21/23 08/21/23 History lisinopril 10 mg tablet 10 mg PO HS 08/21/23 08/21/23 History rivaroxaban 15 mg tablet (Xarelto) 15 mg PO DAILY 08/21/23 08/21/23 History Patient History Medical History (Updated 08/21/23 @ 05:51 by Alberto Sweeney MD) Glaucoma Surgical History (Updated 08/21/23 @ 02:35 by [place]) History of colon resection Social History Smoking Status: Unknown if ever smoked Hx Alcohol Use: Yes Alcohol type: beer and wine Hx Substance Use: No Preferred Language: Romanian Communication Ability: Effective Leisure Studies Professor Required: No Beliefs That Will Affect Care: None Current Living Situation: Spouse Other Information That Helps Us Care for You: No Feels Safe at Home: Yes Safety Concerns: Feels Safe At This Time Assistive Devices: Glasses, Walker and Wheelchair Review of Systems Review of Systems: REVIEW OF SYSTEMS: Constitutional: No fever, sweats or chills Eyes: No diplopia, no worsening or blurred vision ENT: normal hearing, no trouble swallowing Respiratory: No cough, sputum, dyspnea at rest or on exertion Cardiovascular: No chest pain, tightness or palpitations Abdomen: (+) chronic diarrhea, No pain, nausea, vomiting, Musculoskeletal: No joint pain, calf pain, swelling Neurologic: (+) balance problems walks with walker, No weakness, numbness/tingling Psychiatric: No anxiety or depression Skin: No rash or itch Physical Exam Physical Exam: PHYSICAL EXAM: General: awake, alert, no apparent distress Head: Normocephalic, atraumatic ENT: PERRLA, EOMI, no pharyngeal exudate, mucous membranes moist Neuro: AAO x 3, speech clear and appropriate, strength intact bilaterally 5/5, sensation intact and equal all extremities and dermatomes, no pronator drift Chest: equal rise and fall of the chest, no accessory muscle use, no heaves or thrills, Clear to auscultation, on room air, Cardiac: iregular rate and rhythm, telemetry reviewed- afib/bradycardia, skin warm dry, cap refill <3 seconds, peripheral pulses +2 no JVD, no murmur, no edema GI: NABS x 4 quadrants, soft, nontender to palpation, no rebound, guarding or tenderness : Spontaneously voiding, no pain, no CVA tenderness, Psych: Normal mood and affect Skin: developing hematoma on right buttocks- correlate with CT abd/pelvis Results & Data Results & Data Vital Signs (Past 12 Hours) Vital Signs Temp Pulse Pulse Resp BP BP Pulse Ox 08/21/23 02:00 73 19 133/83 95 08/21/23 01:55 82 27 H 119/72 94 08/21/23 01:21 71 08/21/23 01:18 0 L 08/21/23 01:18 0 L 08/21/23 00:01 36.4 C L 66 21 138/83 94 08/20/23 23:55 65 O2 Del Method O2 Flow Rate 08/21/23 02:00 Nasal Cannula 4 08/21/23 01:55 Nasal Cannula 4 08/21/23 01:21 08/21/23 01:18 08/21/23 01:18 08/21/23 00:01 Room Air 08/20/23 23:55 Laboratory Results Abnormal lab results 08/21/23 08/21/23 Range/Units 00:40 02:06 RBC 4.00 L (4.20-5.40) M/uL POC Hgb 10.2 L (12.0-16.0) g/dl POC Hct 30 L (37-47) % MCV 101.3 H (80.0-100.0) fL RDW Std Deviation 52.2 H (36.4-46.3) fL POC pO2 124 H (80-95) mmHg POC HCO3 26 H (19-24) walter/L POC ABG O2 Sat 99.0 H (90-95) % BUN 29 H (6-23) mg/dl BUN/Creatinine Ratio 29.9 H (10-20) Glucose 107 H (70-99(Fasting)) mg/dl Diagnostic Findings Cervical Spine CT 08/21/23 00:10 Exam(s): CT C SPINE EXAM: CT Cervical Spine Without Intravenous Contrast CLINICAL HISTORY: Reason for exam: trauma. TECHNIQUE: Axial computed tomography images of the cervical spine without intravenous contrast. CTDI is 26.61 mGy and DLP is 489.32 mGy-cm. Automated exposure control was utilized for the study. A dose lowering technique was utilized adhering to the principles of ALARA. COMPARISON: No relevant prior studies available. FINDINGS: The vertebral body heights are maintained. The craniocervical junction is intact. The atlanto-dens interval is maintained. The dens is intact. There is no spondylolisthesis. Multilevel cervical spondylosis and degenerative disc disease. Straightening of the cervical lordosis. The unenhanced neck soft tissues are grossly unremarkable. The visualized lung apices are grossly clear. IMPRESSION: No acute fracture or subluxation of the cervical spine. Electronically signed by: Levi Shelby MD 08/21/23 01:[address] 08/21/23 00:10 Exam(s): CT HEAD Without Contrast EXAM: CT Head Without Intravenous Contrast CLINICAL HISTORY: Reason for exam: trauma. TECHNIQUE: Axial computed tomography images of the head/brain without intravenous contrast. CTDI is 37.32 mGy and DLP is 624.41 mGy-cm. Automated exposure control was utilized for the study. A dose lowering technique was utilized adhering to the principles of ALARA. COMPARISON: No relevant prior studies available. FINDINGS: No acute intracranial hemorrhage. No midline shift or mass effect. The territorial gonzales-white matter differentiation is maintained throughout. Age-related cerebral volume loss. Periventricular and subcortical white matter hypoattenuation, consistent with chronic microangiopathy. The visualized orbits appear grossly unremarkable. The calvarium is intact. The visualized paranasal sinuses and mastoid air cells are grossly clear. IMPRESSION: No acute intracranial hemorrhage, midline shift, or mass effect. Electronically signed by: Levi Shelby MD 08/21/23 01:27 AM Medications Administered Home Medications brimonidine 0.1 % eye drops 1 drp OPB .IN AM & DINNERTIME 08/21/23 [History Confirmed 08/21/23] dronedarone 400 mg tablet (Multaq) 400 mg PO BID 08/21/23 [History Confirmed 08/21/23] lisinopril 10 mg tablet 10 mg PO HS 08/21/23 [History Confirmed 08/21/23] rivaroxaban 15 mg tablet (Xarelto) 15 mg PO DAILY 08/21/23 [History Confirmed 08/21/23] Active Medications Sodium Chloride (Nss) 1,000 mls @ 999 mls/hr IV .Q1H1M ONE Stop: 08/21/23 02:54 Norepinephrine Bitartrate (Levophed/D5w) 4 mg in 250 mls @ 14.813 mls/hr IV .[id number] [facility]; Protocol Stop: 09/20/23 01:59 ECG Additional Comments: Atrial fibrillation Low voltage QRS Nonspecific T wave abnormality Abnormal ECG When compared with ECG of 18-APR-2023 01:01, No significant change was found Coding Level of Care Code 11521 CRITICAL CARE 1ST 30-74M Diagnoses Bradycardia R00.1 Hypotension I95.9
[2023-08-21] MEDS: NOREPINEPHRINE/D5W 4 MG/250 ML IV ONE (02:59)
[2023-08-21 03:03] LABS: Thyroid Stimulating Hormone 2.734 uIu/ml (0.300-4.500)
[2023-08-21] MEDS: OPTIRAY 320 100ml IV ONE (03:14)
[2023-08-21] MEDS: PLASMA-LYTE A 500 ML IV ONE (03:30)
[2023-08-21] MEDS: PLASMA-LYTE A 1,000 ML IV SCH (04:11)
--- NOTE | 2023-08-21 04:55 | CT Scan Report ---
Exam(s): CT ABDOMEN + PELVIS With Contrast IV Amt: 93 ml optiray 320 EXAM: CT Chest, Abdomen and Pelvis With Intravenous Contrast CLINICAL HISTORY: Reason for exam: trauma. TECHNIQUE: Axial computed tomography images of the chest, abdomen and pelvis with intravenous contrast. CTDI is 27.93 mGy and DLP is 1195.03 mGy-cm. Automated exposure control was utilized for the study. A dose lowering technique was utilized adhering to the principles of ALARA. CONTRAST: Patient received 93 ml optiray 320 of IV contrast COMPARISON: No relevant prior studies available. FINDINGS: CHEST: Lungs: Right upper lobe pulmonary nodule measuring 6 x 5 mm as seen on series 2, image 31. Scattered areas of air-trapping within the lungs. Findings may be due to phase of expiration. Obstructive pulmonary disease is also possible. Dependent scarring and bronchiectasis at the lung bases which can be seen with infection/aspiration changes. Pleural space: No pneumothorax. No significant effusion. Heart: See below. Mediastinum: Large hiatal hernia. ABDOMEN: Liver: Low attenuation foci in the liver which may be due to cysts but are too small to characterize. Gallbladder and bile ducts: Cholecystectomy changes. No ductal dilation. Pancreas: Unremarkable. No ductal dilation. No mass. Spleen: Unremarkable. No splenomegaly. Adrenals: Unremarkable. No mass. Kidneys and ureters: Bilateral renal cysts mixed. No hydronephrosis. No solid mass. Stomach and bowel: Normal sigmoidectomy changes. Large fat and bowel containing ventral hernia noted overlying the pelvis. No evidence of bowel obstruction. PELVIS: Appendix: No findings to suggest acute appendicitis. Bladder: Unremarkable. No mass. Reproductive: Unremarkable as visualized. CHEST, ABDOMEN and PELVIS: Intraperitoneal space: Enteric anastomosis in the left hemiabdomen. No significant fluid collection. No free air. Bones/joints: Suture anchors at the right humerus. No rib fracture identified. No dislocation. Soft tissues: See above. Vasculature: No evidence of traumatic aortic injury. Please note that the ascending aorta is minimally limited by cardiac pulsation artifact. No aortic aneurysm. Lymph nodes: Unremarkable. No enlarged lymph nodes. IMPRESSION: 1. No acute traumatic findings within the chest, abdomen, or pelvis. If there is further concern for osseous trauma given bone demineralization, consider MRI. 2. No rib fracture identified. 3. No pneumothorax. 4. No evidence of traumatic aortic injury. Please note that the ascending aorta is minimally limited by cardiac pulsation artifact. 5. Right upper lobe pulmonary nodule measuring 6 x 5 mm as seen on series 2, image 31. Fleischner Society Guidelines for low-risk or high- risk patients suggest that no follow-up is necessary. 6. Dependent scarring and bronchiectasis at the lung bases which can be seen with infection/aspiration changes. 7. Other incidental findings as described. Electronically signed by: Jorgito Gutierrez MD 08/21/23 04:54 AM
[2023-08-21 04:56] LABS: Basophils # (auto) 0.03 K/uL (0.00-0.20); Basophils % (auto) 0.3 %; Eosinophils # (auto) 0.01 K/uL (0.00-0.50); Eosinophils % (auto) 0.1 %; Hemoglobin 11.4 g/dl (12.0-16.0); Immature Granulocytes # (auto) 0.11 K/uL (0.01-0.20); Immature Granulocytes % (auto) 1.1 %; Lymphocytes # (auto) 0.73 K/uL (1.20-3.40); Lymphocytes % (auto) 7.2 %; Mean Corpuscular Hemoglobin 34.3 pg (25.0-34.0); Mean Corpuscular Hgb Conc 33.5 g/dL (32.0-36.0); Mean Corpuscular Volume 102.4 fL (80.0-100.0); Mean Platelet Volume 10.2 fL (9.4-12.4); Monocytes # (auto) 0.47 K/uL (0.11-0.59); Monocytes % (auto) 4.7 %; Neutrophils # (auto) 8.72 K/uL (1.40-6.50); Neutrophils % (auto) 86.6 %; Platelet Count 142 K/uL (130-400); RDW Standard Deviation 52.4 fL (36.4-46.3); Red Blood Count 3.32 M/uL (4.20-5.40); White Blood Count 10.07 K/ul (4.8-10.8)
[2023-08-21 05:12] LABS: Albumin Globulin Ratio 1.7 (0.9-2); Albumin Level 3.4 gm/dl (3.4-5.0); BUN Creatinine Ratio 29.3 (10-20); Bilirubin,Total 0.6 mg/dl (0.2-1.0); Calcium 9.2 mg/dl (8.6-10.3); Creatinine Clr Calc Pharmacy 45.3 ml/min; Est GFR (African American) 73.5 ml/min; Est GFR (Non-African American) 63.4 ml/min; Magnesium 1.8 mg/dl (1.7-2.4); Total Protein 5.4 gm/dl (6.0-8.3)
[2023-08-21 05:18] LABS: Troponin I High Sensitivity 6.9 pg/ml (0-14)
[2023-08-21 05:20] LABS: INR 1.1 (0.9-1.1); Partial Thromboplastin Time 27 Seconds (21-31); Prothrombin Time 12.3 Seconds (9.0-12.0)
[2023-08-21] MEDS: diphenhydrAMINE 50 MG/ML VIAL IV STA (05:33)
--- NOTE | 2023-08-21 05:52 | Billing Data ---
Date of Service August 21, 2023 Coding Level of Care Code 96195 CRITICAL CARE
--- NOTE | 2023-08-21 07:24 | XRay Report ---
XR hip RT 2V w pelvis CLINICAL HISTORY: Right hip pain following fall. COMPARISON: None FINDINGS: Sacroiliac joints and symphysis pubis are intact. There is no acute fracture within the pe lvis or hips. Irregularity of the left greater trochanter is degenerative. There is a large amount of stool within the rectum. Moderate bilateral hip osteoarthritis is present. IMPRESSION: No acute fractures within the pelvis or hips. ACT 112: Negative or not required by law. Electronically signed by: Tyrese Woods M.D. 08/21/2023 7:23 AM
--- NOTE | 2023-08-21 07:27 | XRay Report ---
XR shoulder RT min 2V routine CLINICAL HISTORY: trauma COMPARISON: None FINDINGS: Surgical anchors within the right humeral head are present. There is severe narrowing of t he glenohumeral joint with extensive osteophytosis and subchondral sclerosis. No acute fracture or di slocation within the right shoulder is present. IMPRESSION: 1. No fracture or dislocation within the right shoulder. 2. Severe right glenohumeral joint osteoarthritis. ACT 112: Negative or not required by law. Electronically signed by: Tyrese Woods M.D. 08/21/2023 7:25 AM
--- NOTE | 2023-08-21 08:02 | XRay Report ---
XR chest 1V portable CLINICAL HISTORY: trauma TECHNIQUE: Single frontal radiograph of the chest was obtained. Comparison: None available at the time of this dictation. FINDINGS: Bilateral shoulder degenerative changes are seen. Calcified aortic knob is seen. Left retrocardiac op acity is seen. No evidence of pleural effusion or pneumothorax. IMPRESSION: Left retrocardiac opacity. This may represent atelectasis, pneumonia, and/or aspiration. ACT 112: Negative or not required by law. Electronically signed by: Carlos Leyva M.D. 08/21/2023 8:01 AM
[2023-08-21] MEDS: ICU Protocol for HYPERglycemia SCH (08:06)
[2023-08-21] MEDS: DRONEDARONE HCL 400 MG TAB PO SCH (08:17)
--- NOTE | 2023-08-21 08:20 | Electrocardiogram Report ---
Test Reason : Blood Pressure : / mmHG Vent. Rate : 063 BPM Atrial Rate : 000 BPM P-R Int : 000 ms QRS Dur : 088 ms QT Int : 424 ms P-R-T Axes : 000 033 -11 degrees QTc Int : 433 ms Atrial fibrillation Low voltage QRS Nonspecific T wave abnormality Abnormal ECG When compared with ECG of 18-APR-2023 01:01, HR has increased by 16 bpm Otherwise no significant change Confirmed by Dave Hogan ([id number]) on 08/21/2023 8:20:15 AM Referred By: REFERRED SELF Confirmed By:Dave Hogan
[2023-08-21 08:59] LABS: Hematocrit (blood only) 31.3 % (37.0-47.0); Hemoglobin 10.4 g/dl (12.0-16.0); Mean Corpuscular Hemoglobin 33.9 pg (25.0-34.0); Mean Corpuscular Hgb Conc 33.2 g/dL (32.0-36.0); Mean Platelet Volume 10.2 fL (9.4-12.4); Platelet Count 142 K/uL (130-400); RDW Standard Deviation 52.8 fL (36.4-46.3); Red Blood Count 3.07 M/uL (4.20-5.40); White Blood Count 8.68 K/ul (4.8-10.8)
--- NOTE | 2023-08-21 09:08 | XRay Report ---
XR wrist RT min 3V routine CLINICAL HISTORY: trauma TECHNIQUE: 4 views of the right wrist were obtained. Comparison: None available at the time of this dictation. FINDINGS: There is an impacted fracture of the distal radius with likely intra-articular extension. Distal ulna r fracture is also likely. Degenerative changes are seen in the carpal row and radiocarpal articulati on. Soft tissue swelling is seen about the wrist. IMPRESSION: Impacted fracture of the distal radius and ulna. Severe degenerative changes, probable fractures ashley ot be entirely excluded. Soft tissue swelling is seen. ACT 112: Negative or not required by law. Electronically signed by: Carlos Leyva M.D. 08/21/2023 9:07 AM
--- NOTE | 2023-08-21 10:57 | Hospitalist Progress Note ---
Date of Service August 21, 2023 Assessment & Plan (1) Hypotension: (2) Bradycardia: (3) Afib: (4) CHI (closed head injury): (5) Radius distal fracture: (6) Chronic anticoagulation: (7) Status post fall: Plan 88 yo female PMHx a fib on Xarelto, HTN, glaucoma admitted after fall and head strike with R arm injury. Currently ICU status, will resume primary management at time of downgrade. #Bradycardia/Hypotension/afib Now off pressors, BP improving Continue to hold home BP/antiarrythic meds, per cardiology Monitor BP and consider restarting as BP recovers #Closed Head Injury CT w/o fracture, demonstrates hematoma Hold Xarelto #Distal radial fracture Currently splinted Ortho consult Pain control PRN #s/p fall PT/OT FENGI: Heart healthy Code status: full code DVT prophylaxis: SCDs Isolation: none Disposition: ICU Admission and Anticipated Discharge Date Admission Date: August 21, 2023 Supervising Physician Co-Signing Physician Notes Attending Physician Supervision Note: I independently interviewed and examined the patient and verified the altamirano history and physical, reviewed labs and image studies and agree with findings and care plan noted above. Symptomatic bradycardia with asystole needing CPR - has been on multaq for rate control. suspect vasovagal component as well - has been lately having gagging sensation due to postnasal drip. -Echo normal EF. No LVWMA -multaq d/roby. continue tele monitoring. -hold lisinopril for permissive hypertension to allow room for BP drop during vasovagal events. Permanent a fib -add metoprolol if she becomes tachycardic. -hold rivaroxaban d/t fall/trauma. Postnasal drip -azelastine nasal spray added. Also added prn Afrin for maximum 2-day use Distal radius/ulna fracture - splint placed by ortho. Head injury with scalp hematoma- holding xarelto. Subjective Patient seen and evaluated at bedside this morning. Overnight was on pressors. Remains ICU status. Off pressors this AM. BP soft. Rec'd dronedarone despite low BP. Will continue to follow and resume primary management at downgrade. Denies CP, SOB this am Review of Systems Review of Systems: reviewed, per HPI Physical Exam Physical Exam: Constitutional: NAD HEENT: NCAT, no conjunctival injection CV: extremities well-perfused, no LE edema MSK: R forearm in charissa bandage Skin: warm, dry, no rash appreciated, L IJ in place Neuro: alert, oriented, no focal neurologic deficit appreciated Results & Data Results & Data Vital Signs (Past 12 Hours) Vital Signs Temp Pulse Pulse Resp BP BP BP 08/21/23 09:32 68 25 H 95/53 L 08/21/23 08:12 80 21 82/62 L 08/21/23 08:00 87 08/21/23 07:00 36.7 C 71 23 115/67 08/21/23 06:00 70 18 108/60 08/21/23 05:23 08/21/23 05:00 71 17 140/82 08/21/23 04:30 75 19 08/21/23 04:00 85 24 102/68 08/21/23 03:58 08/21/23 03:52 36.6 C 80 16 132/59 L 08/21/23 02:15 79 25 H 104/59 L 08/21/23 02:00 73 19 133/83 08/21/23 01:55 82 27 H 119/72 08/21/23 01:50 78 21 65/38 L 08/21/23 01:45 77 17 83/55 L 08/21/23 01:40 84 18 93/62 L 08/21/23 01:31 91 H 20 127/82 08/21/23 01:21 71 08/21/23 01:18 0 L 08/21/23 01:18 0 L 08/21/23 00:01 74 19 148/112 H 08/21/23 00:01 36.4 C L 66 21 138/83 08/20/23 23:55 65 Pulse Ox Pulse Ox O2 Del Method O2 Del Method O2 Flow Rate O2 Flow Rate 08/21/23 09:32 94 Room Air 08/21/23 08:12 97 Nasal Cannula 2 08/21/23 08:00 08/21/23 07:00 97 Nasal Cannula 2 08/21/23 06:00 96 Nasal Cannula 2 08/21/23 05:23 Nasal Cannula 2 08/21/23 05:00 98 Nasal Cannula 2 08/21/23 04:30 99 Nasal Cannula 2 08/21/23 04:00 99 Nasal Cannula 2 05/29/24 03:58 98 Nasal Cannula 2 08/21/23 03:52 98 Nasal Cannula 2 08/21/23 02:15 98 08/21/23 02:00 95 Nasal Cannula 4 08/21/23 01:55 94 Nasal Cannula 4 08/21/23 01:50 93 08/21/23 01:45 97 Nasal Cannula 4 08/21/23 01:40 97 08/21/23 01:31 99 Nasal Cannula 4 08/21/23 01:21 08/21/23 01:18 08/21/23 01:18 08/21/23 00:01 92 Room Air 08/21/23 00:01 94 Room Air 08/20/23 23:55 Resident Activity Tracking Resident Involvement: Resident Care Provided Care Provided: Adult Hospital Medicine
--- NOTE | 2023-08-21 11:33 | Electrocardiogram Report ---
Test Reason : Blood Pressure : / mmHG Vent. Rate : 093 BPM Atrial Rate : 000 BPM P-R Int : 000 ms QRS Dur : 094 ms QT Int : 382 ms P-R-T Axes : 000 046 -43 degrees QTc Int : 474 ms Atrial fibrillation Nonspecific T wave abnormality Abnormal ECG When compared with ECG of 20-AUG-2023 23:43, No significant change was found Confirmed by Dave Hogan ([id number]) on 08/21/2023 11:33:33 AM Referred By: REFERRED SELF Confirmed By:Dave Hogan
--- NOTE | 2023-08-21 11:54 | Cardiology Consultation ---
Date of Consultation August 21, 2023 Assessment & Plan (1) Syncope: (2) Status post fall: (3) Hypotension: (4) Bradycardia: (5) Afib: Plan 88-year-old woman with apparent permanent atrial fibrillation on dronedarone for rate control had a mechanical fall followed by a period of severe bradycardia/hypotension. She has a long history of apparent vasovagal syncope, her ER episode of bradycardia/hypotension could have been vasovagal in the context of fractured radius/pain or simply the emotional stress of her extensive evaluation in the ER. Her initial fall was mechanical, no loss of consciousness and neither vasovagal syncope nor dysrhythmic event was suggested by her fall. Although dronedarone is helpful for rhythm control and can have a beneficial effect on mortality, when used for rate control studies have shown that mortality is increased. Although it would be reasonable to continue this medication if she were in sinus rhythm, given her marked bradycardia and hypotension, would permanently discontinue dronedarone and initiate metoprolol if she becomes excessively tachycardic (greater than 100 bpm at rest). This could be titrated to achieve ventricular rate of 80-100 bpm. Would allow her to remain off lisinopril to achieve some degree of "permissive hypertension", to allow a greater buffer should she have any future tendencies to vasovagal syncope. Would continue to temporarily hold rivaroxaban, given recent head trauma and various contusions as well as fracture of radius. Reasonable to wait 48 hours after her last dose before restarting. Troponin values and LV wall motion were both normal and no ischemic changes on ECG, thus no evidence of ongoing myocardial ischemia. Continue to follow rhythm on telemetry and adjust negative chronotropic medication (metoprolol) as needed. Will continue to follow along, hopefully will obtain records from [place] to further review her cardiac status. History of Present Illness Reason for Consultation: bradycardia, asystole, hypotension with nl HR Requesting Physician: Emily Flores MD Attending Physician: Emily Flores MD History of Present Illness 88-year-old woman with history of apparently permanent atrial fibrillation (on dronedarone for rate control), who has had recurrent syncope over many years, had a mechanical fall yesterday but while being evaluated in the ER she lost consciousness, became bradycardic, and required atropine and brief CPR. She had sustained an occipital contusion and distal radius fracture from her mechanical fall, trauma evaluation otherwise negative. After her resuscitation from brief but severe bradycardia, she had a period of hypotension requiring saline and vasopressor support (norepinephrine). She was originally from this area but moved to [place] and was followed by director of sports medicine there, she recently relocated to this area. She states that she has been in atrial fibrillation for the past several years, she was on metoprolol but transition to dronedarone for better rate control. Her director of sports medicine did tell her that she may need to stop this medication at some point. No other details regarding her cardiac workup or immediately available. She has longstanding history of apparent vasovagal syncope, many decades ago while holding one of her children was being sutured she had a fainting spell, similar episodes have occurred since but have not been traumatic. As noted, her presenting complaint this admission was actually a mechanical fall with no loss of consciousness. She was weaned from norepinephrine and her home antihypertensive lisinopril was held, however she did receive a dose of dronedarone this morning. At the time my evaluation, she was comfortable and denied any chest pain, dyspnea, palpitations, or lightheadedness. At recent baseline, she does not note any routine orthostatic lightheadedness. Currently, she remains mildly hypotensive with rhythm atrial fibrillation and ventricular sponsor in the 60-70 bpm range. Allergies Allergy/AdvReac Type Severity Reaction Status Date / Time Penicillins Allergy Unknown Verified 08/21/23 01:31 Sulfa (Sulfonamide Allergy Unknown Verified 08/21/23 01:31 Antibiotics) Home Medications Medication Instructions Recorded Confirmed Type brimonidine 0.1 % eye drops 1 drp OPB .IN AM & DINNERTIME 08/21/23 08/21/23 History dronedarone 400 mg tablet (Multaq) 400 mg PO BID 08/21/23 08/21/23 History lisinopril 10 mg tablet 10 mg PO HS 08/21/23 08/21/23 History rivaroxaban 15 mg tablet (Xarelto) 15 mg PO DAILY 08/21/23 08/21/23 History Patient History Medical History Glaucoma Surgical History History of colon resection Social History Smoking Status: Unknown if ever smoked Hx Alcohol Use: Yes Alcohol type: beer and wine Hx Substance Use: No Preferred Language: Icelandic Communication Ability: Effective Resident Care Aid Required: No Beliefs That Will Affect Care: None Current Living Situation: Spouse Feels Safe at Home: Yes Assistive Devices: Glasses, Walker and Wheelchair Physical Exam Physical Exam: Elderly white female in no acute distress. BP 95/53 mmHg. Pulse 68 bpm and irregular. Respirations 25 but unlabored. Skin: no generalized lesions. HEENT: Occipital contusion. Neck: JVP at the clavicle at 90 degrees, right carotid bruit versus transmitted murmur (left with IJ access, not auscultatable). Lungs: Mildly decreased breath sounds but clear. Cardiac: irregular rhythm, 2/6 right upper sternal border crescendo decrescendo systolic ejection murmur possibly radiating to the right carotid, no diastolic murmur. Abdomen: benign. Extremities: Right arm in a cast (radial fracture), pulses intact. Neurologic: normal affect and conversation, nonfocal. Results & Data Laboratory Results Hemoglobin 10.2 with normal white count and platelet count. Normal electrolytes, BUN 24, creatinine 0.82. Troponin negative x 3. Diagnostic Findings Initial ECG showed atrial fibrillation with nonspecific T wave abnormality and ventricular to 63 bpm. ECG today showed atrial fibrillation with ventricular rate of 93 bpm with no change and nonspecific T wave abnormality. Echocardiogram showed EF 65 to 70% with normal wall motion, mildly dilated RV with normal systolic function, mild aortic regurgitation with moderate pulmonary hypertension. Chest CT showed dependent scarring/bronchiectasis at the bases. PG Care Time/CCT Total # of Minutes Spent Total Time Spent with Patient: Total time spent is greater than 50% in coordination of care (as documented) at patient's floor/unit and/or counseling patient: Coding Level of Care Code 22461 INT INP/OBS CARE MIN Diagnoses Syncope R55 Status post fall Z91.81 Hypotension I95.9 Bradycardia R00.1 Afib I48.91
--- NOTE | 2023-08-21 11:55 | XCELERA ---
[id number] [id number]
--- NOTE | 2023-08-21 12:00 | Orthopedic Consultation ---
Date of Consultation August 21, 2023 Assessment & Plan (1) Radius distal fracture: Patient has a nondisplaced right distal radius fracture. She was placed in a sugar-tong splint. It was well-padded. She can use a sling on her right upper extremity for comfort. No pushing, pulling or lifting with the right arm. She can weight-bear through her forearm using a platform walker for ambulation. Ice and elevate the right hand and fingers for swelling. Recommend follow-up with Dr. Perez in 7 to 10 days for repeat x-rays of the right wrist in the splint. We will obtain those x-rays in the hospital if she is still in house. Patient understands and agrees with the plan. Keep the splint on at all all times. Keep it clean and dry. Call [phone] with any questions or concerns. Dr. Perez present for today's visit. History of Present Illness Reason for Consultation: Right distal radius and ulna fracture. Attending Physician: Emily Flores MD History of Present Illness Dr. Perez was consulted for evaluation of Loraine's right wrist after sustaining an accidental fall at home. She was attempting to close her storm door and lost her balance and she temporarily let go of her walker and ultimately fell backwards landing on her buttocks and hitting the back of her head. She did lose consciousness. She was brought to the hospital by ambulance and was complaining of right wrist pain. X-rays were obtained and she was found to have a nondisplaced right distal radius and ulna fracture. She was placed in a thumb spica splint. She was also admitted to the ICU due to hypotension. She does have a history of atrial fibrillation on chronic anticoagulation-Xarelto, hypertension and glaucoma. She reports recently moved to the area. Denies any history of previous falls. Allergies Allergy/AdvReac Type Severity Reaction Status Date / Time Penicillins Allergy Unknown Verified 08/21/23 01:31 Sulfa (Sulfonamide Allergy Unknown Verified 08/21/23 01:31 Antibiotics) Home Medications Medication Instructions Recorded Confirmed Type brimonidine 0.1 % eye drops 1 drp OPB .IN AM & DINNERTIME 08/21/23 08/21/23 History dronedarone 400 mg tablet (Multaq) 400 mg PO BID 08/21/23 08/21/23 History lisinopril 10 mg tablet 10 mg PO HS 08/21/23 08/21/23 History rivaroxaban 15 mg tablet (Xarelto) 15 mg PO DAILY 08/21/23 08/21/23 History Patient History Medical History (Updated 08/21/23 @ 05:51 by Alberto Sweeney MD) Glaucoma Surgical History (Updated 08/21/23 @ 02:35 by [place]) History of colon resection Social History Smoking Status: Unknown if ever smoked Hx Alcohol Use: Yes Alcohol type: beer and wine Hx Substance Use: No Preferred Language: Luxembourger Communication Ability: Effective [place] Required: No Beliefs That Will Affect Care: None Current Living Situation: Spouse Feels Safe at Home: Yes Assistive Devices: Glasses, Walker and Wheelchair Physical Exam Musculoskeletal: Head/Neck/Chest: normocephalic and neck supple Ex tremities: + limited ROM of extremities (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 ) Right, + hand abnormality (arthritic joints/deformities) Right and + foot abnormality Bilateral (chronic bilateral foot deformities); no muscle atrophy, no leg length discrepancy and no fracture blister Hip: no deformity, normal ROM of hip, no crepitation with hip ROM and no joint line tenderness Knee: + knee abnormal to inspection (old healed incisions) and + surgical incision; no skin erythema, no ecchymosis, normal ROM of knee and no joint line tenderness Skin: no rashes, warm and dry Trauma: no evidence of skin trauma, no abrasion and no laceration Results & Data Vital Signs (Past 12 Hours) Vital Signs Temp Pulse Pulse Resp BP BP BP 08/21/23 09:32 68 25 H 95/53 L 08/21/23 08:12 80 21 82/62 L 08/21/23 08:00 87 08/21/23 07:00 36.7 C 71 23 115/67 08/21/23 06:00 70 18 108/60 08/21/23 05:23 08/21/23 05:00 71 17 140/82 08/21/23 04:30 75 19 08/21/23 04:00 85 24 102/68 08/21/23 03:58 05/29/24 03:52 36.6 C 80 16 132/59 L 08/21/23 02:15 79 25 H 104/59 L 08/21/23 02:00 73 19 133/83 08/21/23 01:55 82 27 H 119/72 08/21/23 01:50 78 21 65/38 L 08/21/23 01:45 77 17 83/55 L 08/21/23 01:40 84 18 93/62 L 08/21/23 01:31 91 H 20 127/82 08/21/23 01:21 71 08/21/23 01:18 0 L 08/21/23 01:18 0 L 08/21/23 00:01 74 19 148/112 H 08/21/23 00:01 36.4 C L 66 21 138/83 08/20/23 23:55 65 Pulse Ox Pulse Ox O2 Del Method O2 Del Method O2 Flow Rate O2 Flow Rate 08/21/23 09:32 94 Room Air 08/21/23 08:12 97 Nasal Cannula 2 08/21/23 08:00 08/21/23 07:00 97 Nasal Cannula 2 08/21/23 06:00 96 Nasal Cannula 2 08/21/23 05:23 Nasal Cannula 2 08/21/23 05:00 98 Nasal Cannula 2 08/21/23 04:30 99 Nasal Cannula 2 08/21/23 04:00 99 Nasal Cannula 2 08/21/23 03:58 98 Nasal Cannula 2 08/21/23 03:52 98 Nasal Cannula 2 08/21/23 02:15 98 08/21/23 02:00 95 Nasal Cannula 4 08/21/23 01:55 94 Nasal Cannula 4 08/21/23 01:50 93 08/21/23 01:45 97 Nasal Cannula 4 08/21/23 01:40 97 08/21/23 01:31 99 Nasal Cannula 4 08/21/23 01:21 08/21/23 01:18 08/21/23 01:18 08/21/23 00:01 92 Room Air 08/21/23 00:01 94 Room Air 08/20/23 23:55 Laboratory Results 08/21/23 08/21/23 08/21/23 Range/Units 11:50 10:04 08:45 WBC 8.68 (4.8-10.8) K/ul RBC 3.07 L (4.20-5.40) M/uL Hgb Pending 10.4 L (12.0-16.0) g/dl POC Hgb (12.0-16.0) g/dl Hct 31.3 L (37.0-47.0) % POC Hct (37-47) % MCV 102.0 H (80.0-100.0) fL MCH 33.9 (25.0-34.0) pg MCHC 33.2 (32.0-36.0) g/dL RDW Std Deviation 52.8 H (36.4-46.3) fL RDW Coeff of Jordan 14.0 (11.5-14.5) % Plt Count 142 (130-400) K/uL MPV 10.2 (9.4-12.4) fL Immature Gran % (Auto) % Neut % (Auto) % Lymph % (Auto) % [place] % (Auto) % Eos % (Auto) % Baso % (Auto) % Neut # (Auto) (1.40-6.50) K/uL Lymph # (Auto) (1.20-3.40) K/uL [place] # (Auto) (0.11-0.59) K/uL Eos # (Auto) (0.00-0.50) K/uL Baso # (Auto) (0.00-0.20) K/uL Immature Gran # (Auto) (0.01-0.20) K/uL PT (9.0-12.0) Seconds INR (0.9-1.1) APTT (21-31) Seconds PTT Ratio POC pH (7.35-7.45) POC pCO2 (35-46) mmHg POC pO2 (80-95) mmHg POC HCO3 (19-24) walter/L POC Total CO2 (24-31) mmol/L POC Base Excess (-9-1.8) walter/L POC ABG O2 Sat (90-95) % POC Sodium (135-144) mmol/L Sodium (136-145) mmol/L POC Potassium (3.3-5.0) mmol/L Potassium (3.5-5.1) mmol/L Chloride (98-107) mmol/L Carbon Dioxide (21-32) mmol/L Anion Gap (3-11) BUN (6-23) mg/dl Creatinine (0.6-1.2) mg/dl Est Cr Clr Drug Dosing ml/min Est GFR ( Amer) ml/min Est GFR (Non-Af Amer) ml/min BUN/Creatinine Ratio (10-20) Glucose (70-99(Fasting)) mg/dl POC Glucose (70-99) mg/dl Calcium (8.6-10.3) mg/dl Magnesium (1.7-2.4) mg/dl Total Bilirubin (0.2-1.0) mg/dl AST (13-39) U/L ALT (7-52) U/L Alkaline Phosphatase (34-104) U/L Troponin I High Sens 6.1 (0-14) pg/ml Total Protein (6.0-8.3) gm/dl Albumin (3.4-5.0) gm/dl Globulin (2.5-4.0) gm/dl Albumin/Globulin Ratio (0.9-2) TSH (0.300-4.500) uIu/ml Nasal Screen MRSA (PCR) (Negative) Blood Type Antibody Screen 08/21/23 08/21/23 08/21/23 Range/Units 04:36 04:31 03:30 WBC 10.07 (4.8-10.8) K/ul RBC 3.32 L (4.20-5.40) M/uL Hgb 11.4 L (12.0-16.0) g/dl POC Hgb (12.0-16.0) g/dl Hct 34.0 L (37.0-47.0) % POC Hct (37-47) % MCV 102.4 H (80.0-100.0) fL MCH 34.3 H (25.0-34.0) pg MCHC 33.5 (32.0-36.0) g/dL RDW Std Deviation 52.4 H (36.4-46.3) fL RDW Coeff of Jordan 14.0 (11.5-14.5) % Plt Count 142 (130-400) K/uL MPV 10.2 (9.4-12.4) fL Immature Gran % (Auto) 1.1 % Neut % (Auto) 86.6 % Lymph % (Auto) 7.2 % [place] % (Auto) 4.7 % Eos % (Auto) 0.1 % Baso % (Auto) 0.3 % Neut # (Auto) 8.72 H (1.40-6.50) K/uL Lymph # (Auto) 0.73 L (1.20-3.40) K/uL [place] # (Auto) 0.47 (0.11-0.59) K/uL Eos # (Auto) 0.01 (0.00-0.50) K/uL Baso # (Auto) 0.03 (0.00-0.20) K/uL Immature Gran # (Auto) 0.11 (0.01-0.20) K/uL PT 12.3 H (9.0-12.0) Seconds INR 1.1 (0.9-1.1) APTT 27 (21-31) Seconds PTT Ratio 1.0 POC pH (7.35-7.45) POC pCO2 (35-46) mmHg POC pO2 (80-95) mmHg POC HCO3 (19-24) walter/L POC Total CO2 (24-31) mmol/L POC Base Excess (-9-1.8) walter/L POC ABG O2 Sat (90-95) % POC Sodium (135-144) mmol/L Sodium 140 (136-145) mmol/L POC Potassium (3.3-5.0) mmol/L Potassium 4.0 (3.5-5.1) mmol/L Chloride 107 (98-107) mmol/L Carbon Dioxide 27 (21-32) mmol/L Anion Gap 6 (3-11) BUN 24 H (6-23) mg/dl Creatinine 0.82 (0.6-1.2) mg/dl Est Cr Clr Drug Dosing 45.3 ml/min Est GFR ( Amer) 73.5 ml/min Est GFR (Non-Af Amer) 63.4 ml/min BUN/Creatinine Ratio 29.3 H (10-20) Glucose 136 H (70-99(Fasting)) mg/dl POC Glucose 149 H (70-99) mg/dl Calcium 9.2 (8.6-10.3) mg/dl Magnesium 1.8 (1.7-2.4) mg/dl Total Bilirubin 0.6 (0.2-1.0) mg/dl AST 16 (13-39) U/L ALT 11 (7-52) U/L Alkaline Phosphatase 77 (34-104) U/L Troponin I High Sens 6.9 (0-14) pg/ml Total Protein 5.4 L (6.0-8.3) gm/dl Albumin 3.4 (3.4-5.0) gm/dl Globulin 2.0 L (2.5-4.0) gm/dl Albumin/Globulin Ratio 1.7 (0.9-2) TSH (0.300-4.500) uIu/ml Nasal Screen MRSA (PCR) Negative (Negative) Blood Type A Positive Antibody Screen NEGATIVE 08/21/23 08/21/23 Range/Units 02:06 00:40 WBC 5.99 (4.8-10.8) K/ul RBC 4.00 L (4.20-5.40) M/uL Hgb 13.5 (12.0-16.0) g/dl POC Hgb 10.2 L (12.0-16.0) g/dl Hct 40.5 (37.0-47.0) % POC Hct 30 L (37-47) % MCV 101.3 H (80.0-100.0) fL MCH 33.8 (25.0-34.0) pg MCHC 33.3 (32.0-36.0) g/dL RDW Std Deviation 52.2 H (36.4-46.3) fL RDW Coeff of Jordan 14.0 (11.5-14.5) % Plt Count 180 (130-400) K/uL MPV 10.4 (9.4-12.4) fL Immature Gran % (Auto) 1.0 % Neut % (Auto) 65.0 % Lymph % (Auto) 24.7 % [place] % (Auto) 7.0 % Eos % (Auto) 1.3 % Baso % (Auto) 1.0 % Neut # (Auto) 3.89 (1.40-6.50) K/uL Lymph # (Auto) 1.48 (1.20-3.40) K/uL [place] # (Auto) 0.42 (0.11-0.59) K/uL Eos # (Auto) 0.08 (0.00-0.50) K/uL Baso # (Auto) 0.06 (0.00-0.20) K/uL Immature Gran # (Auto) 0.06 (0.01-0.20) K/uL PT 11.8 (9.0-12.0) Seconds INR 1.1 (0.9-1.1) APTT (21-31) Seconds PTT Ratio POC pH 7.44 (7.35-7.45) POC pCO2 38 (35-46) mmHg POC pO2 124 H (80-95) mmHg POC HCO3 26 H (19-24) walter/L POC Total CO2 27 (24-31) mmol/L POC Base Excess 1.0 (-9-1.8) walter/L POC ABG O2 Sat 99.0 H (90-95) % POC Sodium 143 (135-144) mmol/L Sodium 140 (136-145) mmol/L POC Potassium 3.6 (3.3-5.0) mmol/L Potassium 4.5 (3.5-5.1) mmol/L Chloride 106 (98-107) mmol/L Carbon Dioxide 25 (21-32) mmol/L Anion Gap 9 (3-11) BUN 29 H (6-23) mg/dl Creatinine 0.97 (0.6-1.2) mg/dl Est Cr Clr Drug Dosing 38.3 ml/min Est GFR ( Amer) 60.0 ml/min Est GFR (Non-Af Amer) 51.8 ml/min BUN/Creatinine Ratio 29.9 H (10-20) Glucose 107 H (70-99(Fasting)) mg/dl POC Glucose (70-99) mg/dl Calcium 10.1 (8.6-10.3) mg/dl Magnesium (1.7-2.4) mg/dl Total Bilirubin 0.5 (0.2-1.0) mg/dl AST 18 (13-39) U/L ALT 9 (7-52) U/L Alkaline Phosphatase 83 (34-104) U/L Troponin I High Sens 5.5 (0-14) pg/ml Total Protein 6.6 (6.0-8.3) gm/dl Albumin 3.9 (3.4-5.0) gm/dl Globulin 2.7 (2.5-4.0) gm/dl Albumin/Globulin Ratio 1.4 (0.9-2) TSH 2.734 (0.300-4.500) uIu/ml Nasal Screen MRSA (PCR) (Negative) Blood Type Antibody Screen Diagnostic Findings XR wrist RT min 3V routine CLINICAL HISTORY: trauma TECHNIQUE: 4 views of the right wrist were obtained. Comparison: None available at the time of this dictation. FINDINGS: There is an impacted fracture of the distal radius with likely intra-articular extension. Distal ulnar fracture is also likely. Degenerative changes are seen in the carpal row and radiocarpal articulation. Soft tissue swelling is seen about the wrist. IMPRESSION: Impacted fracture of the distal radius and ulna. Severe degenerative changes, probable fractures cannot be entirely excluded. Soft tissue swelling is seen. XR shoulder RT min 2V routine CLINICAL HISTORY: trauma COMPARISON: None FINDINGS: Surgical anchors within the right humeral head are present. There is severe narrowing of the glenohumeral joint with extensive osteophytosis and subchondral sclerosis. No acute fracture or dislocation within the right shoulder is present. IMPRESSION: 1. No fracture or dislocation within the right shoulder. 2. Severe right glenohumeral joint osteoarthritis. XR hip RT 2V w pelvis CLINICAL HISTORY: Right hip pain following fall. COMPARISON: None FINDINGS: Sacroiliac joints and symphysis pubis are intact. There is no acute fracture within the pelvis or hips. Irregularity of the left greater trochanter is degenerative. There is a large amount of stool within the rectum. Moderate bilateral hip osteoarthritis is present. IMPRESSION: No acute fractures within the pelvis or hips. Exam(s): CT ABDOMEN + PELVIS With Contrast IV Amt: 93 ml optiray 320 EXAM: CT Chest, Abdomen and Pelvis With Intravenous Contrast CLINICAL HISTORY: Reason for exam: trauma. TECHNIQUE: Axial computed tomography images of the chest, abdomen and pelvis with intravenous contrast. CTDI is 27.93 mGy and DLP is 1195.03 mGy-cm. Automated exposure control was utilized for the study. A dose lowering technique was utilized adhering to the principles of ALARA. CONTRAST: Patient received 93 ml optiray 320 of IV contrast COMPARISON: No relevant prior studies available. FINDINGS: CHEST: Lungs: Right upper lobe pulmonary nodule measuring 6 x 5 mm as seen on series 2, image 31. Scattered areas of air-trapping within the lungs. Findings may be due to phase of expiration. Obstructive pulmonary disease is also possible. Dependent scarring and bronchiectasis at the lung bases which can be seen with infection/aspiration changes. Pleural space: No pneumothorax. No significant effusion. Heart: See below. Mediastinum: Large hiatal hernia. ABDOMEN: Liver: Low attenuation foci in the liver which may be due to cysts but are too small to characterize. Gallbladder and bile ducts: Cholecystectomy changes. No ductal dilation. Pancreas: Unremarkable. No ductal dilation. No mass. Spleen: Unremarkable. No splenomegaly. Adrenals: Unremarkable. No mass. Kidneys and ureters: Bilateral renal cysts mixed. No hydronephrosis. No solid mass. Stomach and bowel: Normal sigmoidectomy changes. Large fat and bowel containing ventral hernia noted overlying the pelvis. No evidence of bowel obstruction. PELVIS: Appendix: No findings to suggest acute appendicitis. Bladder: Unremarkable. No mass. Reproductive: Unremarkable as visualized. CHEST, ABDOMEN and PELVIS: Intraperitoneal space: Enteric anastomosis in the left hemiabdomen. No significant fluid collection. No free air. Bones/joints: Suture anchors at the right humerus. No rib fracture identified. No dislocation. Soft tissues: See above. Vasculature: No evidence of traumatic aortic injury. Please note that the ascending aorta is minimally limited by cardiac pulsation artifact. No aortic aneurysm. Lymph nodes: Unremarkable. No enlarged lymph nodes. IMPRESSION: 1. No acute traumatic findings within the chest, abdomen, or pelvis. If there is further concern for osseous trauma given bone demineralization, consider MRI. 2. No rib fracture identified. 3. No pneumothorax. 4. No evidence of traumatic aortic injury. Please note that the ascending aorta is minimally limited by cardiac pulsation artifact. 5. Right upper lobe pulmonary nodule measuring 6 x 5 mm as seen on series 2, image 31. Fleischner Society Guidelines for low-risk or high- risk patients suggest that no follow-up is necessary. 6. Dependent scarring and bronchiectasis at the lung bases which can be seen with infection/aspiration changes. 7. Other incidental findings as described.
[2023-08-21] MEDS: OXYMETAZOLINE 0.05% 30 ML BTL PRN (13:11)
[2023-08-21] MEDS: ACETAMINOPHEN 500 MG TAB PO PRN (13:11)
[2023-08-21] MEDS: BRIMONIDINE TAR 0.1% 75 DROPS/5 ML BTL OP SCH (17:18)
[2023-08-21] MEDS ORDERED: SODIUM BICARB 8.4% INJ 50 MEQ/50 ML SYR IV ONE (17:41)
[2023-08-21] MEDS ORDERED: ATROPINE SULFATE 0.1 MG/ML 10ML SYR IV ONE (17:41)
[2023-08-21 18:14] LABS: Hematocrit (blood only) 28.9 % (37.0-47.0); Hemoglobin 9.8 g/dl (12.0-16.0)
[2023-08-21] MEDS: LIDOCAINE 5% 1 PATCH TD SCH (18:26)
[2023-08-21] MEDS: AZELASTINE HCL 0.1% NASAL 200 SPRAYS/27,400 MCG BTL SCH (20:29)
[2023-08-22 05:12] LABS: Basophils # (auto) 0.05 K/uL (0.00-0.20); Basophils % (auto) 0.9 %; Eosinophils # (auto) 0.04 K/uL (0.00-0.50); Eosinophils % (auto) 0.7 %; Hematocrit (blood only) 27.5 % (37.0-47.0); Hemoglobin 9.2 g/dl (12.0-16.0); Immature Granulocytes # (auto) 0.02 K/uL (0.01-0.20); Immature Granulocytes % (auto) 0.4 %; Lymphocytes % (auto) 19.6 %; Mean Corpuscular Hemoglobin 33.8 pg (25.0-34.0); Mean Corpuscular Hgb Conc 33.5 g/dL (32.0-36.0); Mean Corpuscular Volume 101.1 fL (80.0-100.0); Mean Platelet Volume 10.4 fL (9.4-12.4); Monocytes # (auto) 0.48 K/uL (0.11-0.59); Monocytes % (auto) 8.6 %; Neutrophils # (auto) 3.92 K/uL (1.40-6.50); Neutrophils % (auto) 69.8 %; Platelet Count 114 K/uL (130-400); RDW Coefficient of Variation 14.3 % (11.5-14.5); RDW Standard Deviation 52.3 fL (36.4-46.3); Red Blood Count 2.72 M/uL (4.20-5.40); White Blood Count 5.61 K/ul (4.8-10.8)
[2023-08-22 05:23] LABS: Albumin Globulin Ratio 1.6 (0.9-2); Albumin Level 3.2 gm/dl (3.4-5.0); BUN Creatinine Ratio 26.7 (10-20); Bilirubin,Total 0.6 mg/dl (0.2-1.0); Calcium 9.2 mg/dl (8.6-10.3); Creatinine Clr Calc Pharmacy 49.2 ml/min; Est GFR (African American) 81.9 ml/min; Est GFR (Non-African American) 70.7 ml/min; Total Protein 5.2 gm/dl (6.0-8.3)
[2023-08-22 05:33] LABS: INR 1.1 (0.9-1.1); Partial Thromboplastin Ratio 0.9; Partial Thromboplastin Time 25 Seconds (21-31); Prothrombin Time 11.4 Seconds (9.0-12.0)
--- NOTE | 2023-08-22 10:22 | Cardiology Progress Note ---
Date of Service August 22, 2023 Assessment & Plan (1) Syncope: (2) Status post fall: (3) Bradycardia: (4) Afib: Plan Given persistent bradycardia and recurrence of presyncope would continue to monitor while gradually increasing activity as able. Hopefully, as there is further dronedarone washout her heart rate will increase without becoming tachycardic. 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 At this point, simply avoiding negative chronotropes or other vasoactive medications (such as lisinopril) while increasing her activity would be the mainstay of management. Would also liberalize salt/sodium intake. If presyncope persists, depending upon whether bradycardia or vasodepressor component predominates, decide on pacemaker versus fludrocortisone. Given persistent atrial fibrillation, would restart rivaroxaban once it has been 48 hours after last dose. Continue attempts to obtain cardiology records from [place]. Will continue to follow along. Admission and Anticipated Discharge Date Admission Date: August 21, 2023 Subjective No major events overnight but she has been experiencing further episodes of presyncope, including one that occurred when she had some GI distress. No actual syncope. Telemetry shows atrial fibrillation with slow ventricular response, mostly in the 60 bpm range. There is an artifact that is labeled "ventricular tachycardia", but likely represents electrical interference such as due to limb movement (so-called toothbrush tachycardia). At the time of my evaluation this morning, patient was comfortable and had no somatic complaints. No chest pain, dyspnea, or lightheadedness. Physical Exam Physical Exam: No distress. BP normotensive. Pulse 64 bpm and irregular. Respirations 21 but unlabored Skin: no generalized lesions. HEENT: Occipital contusion. Neck: JVP at the clavicle at 90 degrees. Lungs: Mildly decreased breath sounds but clear. Cardiac: irregular rhythm, 2/6 right upper sternal border crescendo decrescendo systolic ejection murmur possibly radiating to the right carotid, no diastolic murmur. Abdomen: benign. Extremities: Right arm in a cast (radial fracture), pulses intact. Neurologic: normal affect and conversation, nonfocal. Results & Data Laboratory Results Hemoglobin 9.2, normal white count, platelet count 114,000. Normal electrolytes, BUN 20, creatinine 0.75. Diagnostic Findings Echocardiogram yesterday showed EF 65 to 70% with normal LV wall motion, mildly dilated RV with normal systolic function, mild aortic regurgitation, moderate pulmonary hypertension. PG Care Time/CCT Total # of Minutes Spent Total Time Spent with Patient: Total time spent is greater than 50% in coordination of care (as documented) at patient's floor/unit and/or counseling patient: Coding Level of Care Code 84187 SUB INP/OBS CARE 3/50MIN Diagnoses Syncope R55 Status post fall Z91.81 Bradycardia R00.1 Afib I48.91
[2023-08-22 13:24] LABS: Hematocrit (blood only) 28.4 % (37.0-47.0); Hemoglobin 9.4 g/dl (12.0-16.0); Mean Corpuscular Hemoglobin 34.2 pg (25.0-34.0); Mean Corpuscular Hgb Conc 33.1 g/dL (32.0-36.0); Mean Corpuscular Volume 103.3 fL (80.0-100.0); Mean Platelet Volume 10.6 fL (9.4-12.4); Platelet Count 122 K/uL (130-400); RDW Coefficient of Variation 14.5 % (11.5-14.5); Red Blood Count 2.75 M/uL (4.20-5.40); White Blood Count 6.03 K/ul (4.8-10.8)
--- NOTE | 2023-08-22 13:32 | Orthopedic Progress Note ---
Date of Service August 22, 2023 Assessment & Plan (1) Radius distal fracture: Plan: Patient has a nondisplaced right distal radius fracture. She can use a sling on her right upper extremity for comfort. No pushing, pulling or lifting with the right arm. She can weight-bear through her forearm using a platform walker for ambulation. Ice and elevate the right hand and fingers for swelling. Recommend follow-up with Dr. Perez in 7 to 10 days for repeat x-rays of the right wrist in the splint. We will obtain those x-rays in the hospital if she is still in house. Patient understands and agrees with the plan. Keep the splint on at all all times. Keep it clean and dry. Call [phone] with any questions or concerns. Dr. Perez present for today's visit. Admission and Anticipated Discharge Date Admission Date: August 21, 2023 Subjective This 88-year-old female is seen today for follow-up of a nondisplaced right distal radius fracture that is being managed with an ulnar gutter splint. Patient states the splint is very comfortable. She has no pain in her extremity. She states she is able to move her fingers. She states she has very limited mobility in her shoulder that is chronic in nature from rotator cuff insufficiency. Currently she denies chest pain, shortness of breath, fever, chills, sweats or numbness or tingling in the right upper extremity. Review of Systems Review of Systems: All systems reviewed & are unremarkable except as noted in Subjective Physical Exam Physical Exam: Right upper extremity: Splint that is clean dry and intact and left in place. Patient is neurovascularly intact in the right upper extremity. She has mobility of her fingers and is able to detect light sensation to touch over the pads of all digits. Range of motion of her shoulder actively is very limited however she has no significant discomfort with passive forward flexion, abduction and or with abducted internal or external rotation. Results & Data Vital Signs (Past 12 Hours) Vital Signs Temp Pulse Pulse Resp BP BP Pulse Ox 08/22/23 11:28 37.1 C 68 19 107/61 92 08/22/23 08:01 68 21 123/48 L 94 08/22/23 08:00 64 08/22/23 07:21 36.5 C 62 18 135/63 95 08/22/23 07:01 62 22 135/63 90 08/22/23 04:00 37 C 62 16 127/61 95 O2 Del Method 08/22/23 11:28 Room Air 08/22/23 08:01 Room Air 08/22/23 08:00 08/22/23 07:21 Room Air 08/22/23 07:01 Room Air 08/22/23 04:00 Room Air Diagnostic Findings Laboratory Results WBC 6.03 K/ul (4.8-10.8) 08/22/23 12:58 RBC 2.75 M/uL (4.20-5.40) L 08/22/23 12:58 Hgb 9.4 g/dl (12.0-16.0) L 08/22/23 12:58 POC Hgb 10.2 g/dl (12.0-16.0) L 08/21/23 02:06 Hct 28.4 % (37.0-47.0) L 08/22/23 12:58 POC Hct 30 % (37-47) L 08/21/23 02:06 MCV 103.3 fL (80.0-100.0) H 08/22/23 12:58 MCH 34.2 pg (25.0-34.0) H 08/22/23 12:58 MCHC 33.1 g/dL (32.0-36.0) 08/22/23 12:58 RDW Std Deviation 54.0 fL (36.4-46.3) H 08/22/23 12:58 RDW Coeff of Jordan 14.5 % (11.5-14.5) 08/22/23 12:58 Plt Count 122 K/uL (130-400) L 08/22/23 12:58 MPV 10.6 fL (9.4-12.4) 08/22/23 12:58 Immature Gran % (Auto) 0.4 % 08/22/23 04:47 Neut % (Auto) 69.8 % 08/22/23 04:47 Lymph % (Auto) 19.6 % 08/22/23 04:47 Woodward % (Auto) 8.6 % 08/22/23 04:47 Eos % (Auto) 0.7 % 08/22/23 04:47 Baso % (Auto) 0.9 % 08/22/23 04:47 Neut # (Auto) 3.92 K/uL (1.40-6.50) 08/22/23 04:47 Lymph # (Auto) 1.10 K/uL (1.20-3.40) L 08/22/23 04:47 Woodward # (Auto) 0.48 K/uL (0.11-0.59) 08/22/23 04:47 Eos # (Auto) 0.04 K/uL (0.00-0.50) 08/22/23 04:47 Baso # (Auto) 0.05 K/uL (0.00-0.20) 08/22/23 04:47 Immature Gran # (Auto) 0.02 K/uL (0.01-0.20) 08/22/23 04:47 PT 11.4 Seconds (9.0-12.0) 08/22/23 04:47 INR 1.1 (0.9-1.1) 08/22/23 04:47 APTT 25 Seconds (21-31) 08/22/23 04:47 PTT Ratio 0.9 08/22/23 04:47 POC pH 7.44 (7.35-7.45) 08/21/23 02:06 POC pCO2 38 mmHg (35-46) 08/21/23 02:06 POC pO2 124 mmHg (80-95) H 08/21/23 02:06 POC HCO3 26 walter/L (19-24) H 08/21/23 02:06 POC Total CO2 27 mmol/L (24-31) 08/21/23 02:06 POC Base Excess 1.0 walter/L (-9-1.8) 08/21/23 02:06 POC ABG O2 Sat 99.0 % (90-95) H 08/21/23 02:06 POC Sodium 143 mmol/L (135-144) 08/21/23 02:06 Sodium 137 mmol/L (136-145) 08/22/23 04:47 POC Potassium 3.6 mmol/L (3.3-5.0) 08/21/23 02:06 Potassium 4.0 mmol/L (3.5-5.1) 08/22/23 04:47 Chloride 106 mmol/L (98-107) 08/22/23 04:47 Carbon Dioxide 27 mmol/L (21-32) 08/22/23 04:47 Anion Gap 4 (3-11) 08/22/23 04:47 BUN 20 mg/dl (6-23) 08/22/23 04:47 Creatinine 0.75 mg/dl (0.6-1.2) 08/22/23 04:47 Est Cr Clr Drug Dosing 49.2 ml/min 08/22/23 04:47 Est GFR ( Amer) 81.9 ml/min 08/22/23 04:47 Est GFR (Non-Af Amer) 70.7 ml/min 08/22/23 04:47 BUN/Creatinine Ratio 26.7 (10-20) H 08/22/23 04:47 Glucose 100 mg/dl (70-99(Fasting)) H 08/22/23 04:47 POC Glucose 149 mg/dl (70-99) H 08/21/23 04:36 Calcium 9.2 mg/dl (8.6-10.3) 08/22/23 04:47 Magnesium 2.0 mg/dl (1.7-2.4) 08/22/23 04:47 Total Bilirubin 0.6 mg/dl (0.2-1.0) 08/22/23 04:47 AST 14 U/L (13-39) 08/22/23 04:47 ALT 8 U/L (7-52) 08/22/23 04:47 Alkaline Phosphatase 61 U/L (34-104) 08/22/23 04:47 Troponin I High Sens 4.9 pg/ml (0-14) 08/21/23 16:39 Total Protein 5.2 gm/dl (6.0-8.3) L 08/22/23 04:47 Albumin 3.2 gm/dl (3.4-5.0) L 08/22/23 04:47 Globulin 2.0 gm/dl (2.5-4.0) L 08/22/23 04:47 Albumin/Globulin Ratio 1.6 (0.9-2) 08/22/23 04:47 TSH 2.734 uIu/ml (0.300-4.500) 08/21/23 00:40 Nasal Screen MRSA (PCR) Negative (Negative) 08/21/23 03:30 Blood Type A Positive 08/21/23 04:31 Antibody Screen NEGATIVE 08/21/23 04:[address] 08/21/23 00:10 Exam(s): CT C SPINE EXAM: CT Cervical Spine Without Intravenous Contrast CLINICAL HISTORY: Reason for exam: trauma. TECHNIQUE: Axial computed tomography images of the cervical spine without intravenous contrast. CTDI is 26.61 mGy and DLP is 489.32 mGy-cm. Automated exposure control was utilized for the study. A dose lowering technique was utilized adhering to the principles of ALARA. COMPARISON: No relevant prior studies available. FINDINGS: The vertebral body heights are maintained. The craniocervical junction is intact. The atlanto-dens interval is maintained. The dens is intact. There is no spondylolisthesis. Multilevel cervical spondylosis and degenerative disc disease. Straightening of the cervical lordosis. The unenhanced neck soft tissues are grossly unremarkable. The visualized lung apices are grossly clear. IMPRESSION: No acute fracture or subluxation of the cervical spine. Electronically signed by: Levi Shelby MD 08/21/23 01:26 AM Chest X-Ray 08/21/23 00:10 XR chest 1V portable CLINICAL HISTORY: trauma TECHNIQUE: Single frontal radiograph of the chest was obtained. Comparison: None available at the time of this dictation. FINDINGS: Bilateral shoulder degenerative changes are seen. Calcified aortic knob is seen. Left retrocardiac opacity is seen. No evidence of pleural effusion or pneumothorax. IMPRESSION: Left retrocardiac opacity. This may represent atelectasis, pneumonia, and/or aspiration. ACT 112: Negative or not required by law. Electronically signed by: Carlos Leyva M.D. 08/21/2023 8:[address] 08/21/23 00:10 Exam(s): CT HEAD Without Contrast EXAM: CT Head Without Intravenous Contrast CLINICAL HISTORY: Reason for exam: trauma. TECHNIQUE: Axial computed tomography images of the head/brain without intravenous contrast. CTDI is 37.32 mGy and DLP is 624.41 mGy-cm. Automated exposure control was utilized for the study. A dose lowering technique was utilized adhering to the principles of ALARA. COMPARISON: No relevant prior studies available. FINDINGS: No acute intracranial hemorrhage. No midline shift or mass effect. The territorial gonzales-white matter differentiation is maintained throughout. Age-related cerebral volume loss. Periventricular and subcortical white matter hypoattenuation, consistent with chronic microangiopathy. The visualized orbits appear grossly unremarkable. The calvarium is intact. The visualized paranasal sinuses and mastoid air cells are grossly clear. IMPRESSION: No acute intracranial hemorrhage, midline shift, or mass effect. Electronically signed by: Levi Shelby MD 08/21/23 01:27 AM Hip/Pelvis X-Ray 08/21/23 00:10 XR hip RT 2V w pelvis CLINICAL HISTORY: Right hip pain following fall. COMPARISON: None FINDINGS: Sacroiliac joints and symphysis pubis are intact. There is no acute fracture within the pelvis or hips. Irregularity of the left greater trochanter is degenerative. There is a large amount of stool within the rectum. Moderate bilateral hip osteoarthritis is present. IMPRESSION: No acute fractures within the pelvis or hips. ACT 112: Negative or not required by law. Electronically signed by: Tyrese Woods M.D. 08/21/2023 7:23 AM Shoulder X-Ray 08/21/23 00:10 XR shoulder RT min 2V routine CLINICAL HISTORY: trauma COMPARISON: None FINDINGS: Surgical anchors within the right humeral head are present. There is severe narrowing of the glenohumeral joint with extensive osteophytosis and subchondral sclerosis. No acute fracture or dislocation within the right shoulder is present. IMPRESSION: 1. No fracture or dislocation within the right shoulder. 2. Severe right glenohumeral joint osteoarthritis. ACT 112: Negative or not required by law. Electronically signed by: Tyrese Woods M.D. 08/21/2023 7:25 AM Wrist X-Ray 08/21/23 00:10 XR wrist RT min 3V routine CLINICAL HISTORY: trauma TECHNIQUE: 4 views of the right wrist were obtained. Comparison: None available at the time of this dictation. FINDINGS: There is an impacted fracture of the distal radius with likely intra-articular extension. Distal ulnar fracture is also likely. Degenerative changes are seen in the carpal row and radiocarpal articulation. Soft tissue swelling is seen about the wrist. IMPRESSION: Impacted fracture of the distal radius and ulna. Severe degenerative changes, probable fractures cannot be entirely excluded. Soft tissue swelling is seen. ACT 112: Negative or not required by law. Electronically signed by: Carlos Leyva M.D. 08/21/2023 9:07 AM Abdomen/Pelvis CT 08/21/23 01:31 Exam(s): CT ABDOMEN + PELVIS With Contrast IV Amt: 93 ml optiray 320 EXAM: CT Chest, Abdomen and Pelvis With Intravenous Contrast CLINICAL HISTORY: Reason for exam: trauma. TECHNIQUE: Axial computed tomography images of the chest, abdomen and pelvis with intravenous contrast. CTDI is 27.93 mGy and DLP is 1195.03 mGy-cm. Automated exposure control was utilized for the study. A dose lowering technique was utilized adhering to the principles of ALARA. CONTRAST: Patient received 93 ml optiray 320 of IV contrast COMPARISON: No relevant prior studies available. FINDINGS: CHEST: Lungs: Right upper lobe pulmonary nodule measuring 6 x 5 mm as seen on series 2, image 31. Scattered areas of air-trapping within the lungs. Findings may be due to phase of expiration. Obstructive pulmonary disease is also possible. Dependent scarring and bronchiectasis at the lung bases which can be seen with infection/aspiration changes. Pleural space: No pneumothorax. No significant effusion. Heart: See below. Mediastinum: Large hiatal hernia. ABDOMEN: Liver: Low attenuation foci in the liver which may be due to cysts but are too small to characterize. Gallbladder and bile ducts: Cholecystectomy changes. No ductal dilation. Pancreas: Unremarkable. No ductal dilation. No mass. Spleen: Unremarkable. No splenomegaly. Adrenals: Unremarkable. No mass. Kidneys and ureters: Bilateral renal cysts mixed. No hydronephrosis. No solid mass. Stomach and bowel: Normal sigmoidectomy changes. Large fat and bowel containing ventral hernia noted overlying the pelvis. No evidence of bowel obstruction. PELVIS: Appendix: No findings to suggest acute appendicitis. Bladder: Unremarkable. No mass. Reproductive: Unremarkable as visualized. CHEST, ABDOMEN and PELVIS: Intraperitoneal space: Enteric anastomosis in the left hemiabdomen. No significant fluid collection. No free air. Bones/joints: Suture anchors at the right humerus. No rib fracture identified. No dislocation. Soft tissues: See above. Vasculature: No evidence of traumatic aortic injury. Please note that the ascending aorta is minimally limited by cardiac pulsation artifact. No aortic aneurysm. Lymph nodes: Unremarkable. No enlarged lymph nodes. IMPRESSION: 1. No acute traumatic findings within the chest, abdomen, or pelvis. If there is further concern for osseous trauma given bone demineralization, consider MRI. 2. No rib fracture identified. 3. No pneumothorax. 4. No evidence of traumatic aortic injury. Please note that the ascending aorta is minimally limited by cardiac pulsation artifact. 5. Right upper lobe pulmonary nodule measuring 6 x 5 mm as seen on series 2, image 31. Fleischner Society Guidelines for low-risk or high- risk patients suggest that no follow-up is necessary. 6. Dependent scarring and bronchiectasis at the lung bases which can be seen with infection/aspiration changes. 7. Other incidental findings as described. Electronically signed by: Jorgito Gutierrez MD 08/21/23 04:[address] 08/21/23 01:31 Exam(s): CT CHEST With Contrast IV Amt: 93 ml optiray 320 EXAM: CT Chest, Abdomen and Pelvis With Intravenous Contrast CLINICAL HISTORY: Reason for exam: trauma. TECHNIQUE: Axial computed tomography images of the chest, abdomen and pelvis with intravenous contrast. CTDI is 27.93 mGy and DLP is 1195.03 mGy-cm. Automated exposure control was utilized for the study. A dose lowering technique was utilized adhering to the principles of ALARA. CONTRAST: Patient received 93 ml optiray 320 of IV contrast COMPARISON: No relevant prior studies available. FINDINGS: CHEST: Lungs: Right upper lobe pulmonary nodule measuring 6 x 5 mm as seen on series 2, image 31. Scattered areas of air-trapping within the lungs. Findings may be due to phase of expiration. Obstructive pulmonary disease is also possible. Dependent scarring and bronchiectasis at the lung bases which can be seen with infection/aspiration changes. Pleural space: No pneumothorax. No significant effusion. Heart: See below. Mediastinum: Large hiatal hernia. ABDOMEN: Liver: Low attenuation foci in the liver which may be due to cysts but are too small to characterize. Gallbladder and bile ducts: Cholecystectomy changes. No ductal dilation. Pancreas: Unremarkable. No ductal dilation. No mass. Spleen: Unremarkable. No splenomegaly. Adrenals: Unremarkable. No mass. Kidneys and ureters: Bilateral renal cysts mixed. No hydronephrosis. No solid mass. Stomach and bowel: Normal sigmoidectomy changes. Large fat and bowel containing ventral hernia noted overlying the pelvis. No evidence of bowel obstruction. PELVIS: Appendix: No findings to suggest acute appendicitis. Bladder: Unremarkable. No mass. Reproductive: Unremarkable as visualized. CHEST, ABDOMEN and PELVIS: Intraperitoneal space: Enteric anastomosis in the left hemiabdomen. No significant fluid collection. No free air. Bones/joints: Suture anchors at the right humerus. No rib fracture identified. No dislocation. Soft tissues: See above. Vasculature: No evidence of traumatic aortic injury. Please note that the ascending aorta is minimally limited by cardiac pulsation artifact. No aortic aneurysm. Lymph nodes: Unremarkable. No enlarged lymph nodes.
--- NOTE | 2023-08-22 16:20 | Hospitalist Progress Note ---
Date of Service August 22, 2023 Assessment & Plan (1) Hypotension: (2) Bradycardia: (3) Afib: (4) CHI (closed head injury): (5) Radius distal fracture: (6) Chronic anticoagulation: (7) Status post fall: Plan 88 yo female PMHx a fib on Xarelto, HTN, glaucoma admitted after fall and head strike with R arm injury. Currently ICU status, will resume primary management at time of downgrade. #Bradycardia/Hypotension/afib BP stable dc antiarrythmic indefinitely metoprolol for rate control if needed #Anemia blood loss vs dilutional Hb stable #Closed Head Injury CT w/o fracture, demonstrates hematoma Hold Xarelto #Distal radial fracture Currently splinted Ortho consult Pain control PRN #s/p fall PT/OT FENGI: Heart healthy Code status: full code DVT prophylaxis: SCDs Isolation: none Disposition: ICU Admission and Anticipated Discharge Date Admission Date: August 21, 2023 Supervising Physician Co-Signing Physician Notes Attending Physician Supervision Note: I independently interviewed and examined the patient and verified the altamirano history and physical, reviewed labs and image studies and agree with findings and care plan noted above. Symptomatic bradycardia with asystole needing CPR - has been on multaq for rate control. Chronic h/o significant vasovagal response. lately having gagging sensation due to postnasal drip. -Echo normal EF. No LVWMA -multaq d/roby. If needed - use metoprolol for rate control. -hold lisinopril for permissive hypertension to allow room for BP drop during vasovagal events. Permanent a fib -add metoprolol if she becomes tachycardic. -hold rivaroxaban d/t fall/trauma. Postnasal drip - improved with addition of azelastine nasal spray harjit and Afrin prn for maximum 2-day use Distal radius/ulna fracture - splint placed by ortho. Head injury with scalp hematoma- holding xarelto. Anemia - h/h stable Subjective Patient seen and evaluated at bedside this morning. No acute events overnight. Patient resting comfortably in bed this morning. Great insight into illness. Desires rehab prior to returning home. Review of Systems Review of Systems: reviewed, per HPI Physical Exam Physical Exam: Constitutional: NAD HEENT: NCAT, no conjunctival injection CV: extremities well-perfused, no LE edema MSK: R forearm in charissa bandage Skin: warm, dry, no rash appreciated, L IJ in place Neuro: alert, oriented, no focal neurologic deficit appreciated Results & Data Results & Data Vital Signs (Past 12 Hours) Vital Signs Temp Pulse Pulse Resp BP BP Pulse Ox 08/22/23 11:28 37.1 C 68 19 107/61 92 08/22/23 08:01 68 21 123/48 L 94 08/22/23 08:00 64 08/22/23 07:21 36.5 C 62 18 135/63 95 08/22/23 07:01 62 22 135/63 90 O2 Del Method 08/22/23 11:28 Room Air 08/22/23 08:01 Room Air 08/22/23 08:00 08/22/23 07:21 Room Air 08/22/23 07:01 Room Air Resident Activity Tracking Resident Involvement: Resident Care Provided Care Provided: Adult Hospital Medicine
[2023-08-23 07:09] LABS: Basophils # (auto) 0.06 K/uL (0.00-0.20); Basophils % (auto) 1.3 %; Eosinophils # (auto) 0.16 K/uL (0.00-0.50); Eosinophils % (auto) 3.4 %; Hematocrit (blood only) 27.8 % (37.0-47.0); Hemoglobin 9.1 g/dl (12.0-16.0); Immature Granulocytes # (auto) 0.03 K/uL (0.01-0.20); Immature Granulocytes % (auto) 0.6 %; Lymphocytes # (auto) 1.07 K/uL (1.20-3.40); Mean Corpuscular Hemoglobin 33.7 pg (25.0-34.0); Mean Corpuscular Hgb Conc 32.7 g/dL (32.0-36.0); Mean Platelet Volume 10.7 fL (9.4-12.4); Monocytes # (auto) 0.41 K/uL (0.11-0.59); Monocytes % (auto) 8.8 %; Neutrophils # (auto) 2.93 K/uL (1.40-6.50); Neutrophils % (auto) 62.9 %; Platelet Count 120 K/uL (130-400); RDW Coefficient of Variation 14.1 % (11.5-14.5); RDW Standard Deviation 53.6 fL (36.4-46.3); White Blood Count 4.66 K/ul (4.8-10.8)
[2023-08-23 07:37] LABS: Partial Thromboplastin Ratio 0.9; Partial Thromboplastin Time 25 Seconds (21-31); Prothrombin Time 11.1 Seconds (9.0-12.0)
[2023-08-23 07:41] LABS: Albumin Globulin Ratio 1.4 (0.9-2); Bilirubin,Total 0.5 mg/dl (0.2-1.0); Creatinine Clr Calc Pharmacy 48.1 ml/min; Est GFR (African American) 79.3 ml/min; Est GFR (Non-African American) 68.5 ml/min; Globulin 2.1 gm/dl (2.5-4.0); Magnesium 1.9 mg/dl (1.7-2.4); Total Protein 5.1 gm/dl (6.0-8.3)
--- NOTE | 2023-08-23 08:37 | Electrocardiogram Report ---
Test Reason : Blood Pressure : / mmHG Vent. Rate : 055 BPM Atrial Rate : 035 BPM P-R Int : 000 ms QRS Dur : 090 ms QT Int : 414 ms P-R-T Axes : 000 054 001 degrees QTc Int : 396 ms Atrial fibrillation with slow ventricular response Low voltage QRS Diffuse Nonspecific T wave abnormality Abnormal ECG When compared with ECG of 21-AUG-2023 01:27, Vent. rate has decreased BY 38 BPM QT has shortened Confirmed by Dave Hogan ([id number]) on 08/23/2023 8:37:23 AM Referred By: REFERRED SELF Confirmed By:Dave Hogan
[2023-08-23] MEDS: ACETAMINOPHEN 500 MG TAB PO PRN (08:59)
[2023-08-23] MEDS: ACETAMINOPHEN 500 MG TAB ONE (09:16)
--- NOTE | 2023-08-23 09:18 | Hospitalist Progress Note ---
Date of Service August 23, 2023 Assessment & Plan (1) Hypotension: (2) Bradycardia: (3) Afib: (4) CHI (closed head injury): (5) Radius distal fracture: (6) Chronic anticoagulation: (7) Status post fall: Plan 88 yo female PMHx a fib on Xarelto, HTN, glaucoma admitted after fall and head strike with R arm injury. Currently ICU status, will resume primary management at time of downgrade. #Bradycardia/Hypotension/afib BP stable dc antiarrythmic indefinitely metoprolol for rate control if needed restart Xarelto today continue to monitor for symptomatic events/need for pacemaker #Anemia blood loss vs dilutional Hb stable #Closed Head Injury CT w/o fracture #Distal radial fracture Currently splinted Repeat XR August 27-, f/u w/ Dr. Perez Pain control PRN #s/p fall PT/OT FENGI: Heart healthy Code status: full code DVT prophylaxis: SCDs Isolation: none Disposition: ICU Admission and Anticipated Discharge Date Admission Date: August 21, 2023 Supervising Physician Co-Signing Physician Notes Attending Physician Supervision Note: I independently interviewed and examined the patient and verified the altamirano history and physical, reviewed labs and image studies and agree with findings and care plan noted above. Symptomatic bradycardia with asystole needing CPR - has been on multaq for rate control. Chronic h/o significant vasovagal response. lately having gagging sensation due to postnasal drip. -Echo normal EF. No LVWMA -multaq d/roby. If needed - use metoprolol for rate control. -hold lisinopril for permissive hypertension to allow room for BP drop during vasovagal events. -maintain liberal salt intake. -If presyncope/syncope recurs, depending upon whether bradycardia or vasodepressor component predominates, decide on pacemaker versus fludrocortisone. Permanent a fib -d/roby multaq. if she becomes tachycardic - add metoprolol. -resume Postnasal drip - improved with addition of azelastine nasal spray harjit and Afrin prn for maximum 2-day use Distal radius/ulna fracture - splint placed by ortho. Head injury with scalp hematoma- holding xarelto. Anemia - h/h stable Subjective Patient seen and evaluated at bedside this morning. No acute events overnight. Patient resting comfortably in bed this morning. Great insight into illness. PT/OT has not yet seen her; eval pending placement. HR borderline hypotensive, BP stable. Review of Systems Review of Systems: reviewed, per HPI Physical Exam Physical Exam: Constitutional: NAD HEENT: NCAT, no conjunctival injection CV: extremities well-perfused, no LE edema MSK: R forearm in charissa bandage Skin: warm, dry, no rash appreciated Neuro: alert, oriented, no focal neurologic deficit appreciated Results & Data Results & Data Vital Signs (Past 12 Hours) Vital Signs Temp Pulse Pulse Resp BP Pulse Ox O2 Del Method 08/23/23 07:50 36.5 C 76 21 100/58 L 94 Room Air 08/23/23 03:29 36.6 C 63 18 138/66 92 Room Air 08/23/23 03:00 08/22/23 23:33 68 08/22/23 22:26 36.9 C 64 16 118/57 L 96 Room Air O2 Del Method 08/23/23 07:50 08/23/23 03:29 08/23/23 03:00 Room Air 08/22/23 23:33 08/22/23 22:26 Resident Activity Tracking Resident Involvement: Resident Care Provided Care Provided: Adult Hospital Medicine
--- NOTE | 2023-08-23 11:03 | Cardiology Progress Note ---
Date of Service August 23, 2023 Assessment & Plan (1) Syncope: (2) Status post fall: (3) Bradycardia: (4) Afib: Plan Aside from a brief increase to the 90 bpm range 2 days ago, her overall rhythm has been bradycardic or low normal ventricular rate. No tachydysrhythmia is despite being off dronedarone and not utilizing any negative chronotropic medication. Given low normal blood pressure would continue to have her remain off lisinopril as well, this could be resumed as an outpatient if she became markedly hypertensive, but would allow some degree of "permissive hypertension" to reduce risk of recurrent syncope. Maintain liberal salt/sodium intake. If presyncope/syncope recurs, depending upon whether bradycardia or vasodepressor component predominates, decide on pacemaker versus fludrocortisone. Given persistent atrial fibrillation, agree with restarting rivaroxaban. Stable from a cardiac standpoint, will sign off. If additional cardiac issues arise over the weekend, please contact Dr. Malloy. Once she completes her course of physical rehabilitation, I would be glad to see her in the outpatient cardiology setting for follow-up. Admission and Anticipated Discharge Date Admission Date: August 21, 2023 Subjective Uneventful night. No further episodes of presyncope or syncope. No chest pain, dyspnea, or other complaints. Telemetry showed atrial fibrillation with slowly improving ventricular rate (previously 40 bpm, now 60-80 bpm range). No tachydysrhythmias. Physical Exam Physical Exam: No distress. BP 100/58 mmHg. Pulse 76 bpm and irregular. Respirations 21 but unlabored Skin: no generalized lesions. HEENT: Unremarkable. Neck: JVP at the clavicle at 90 degrees. Lungs: Mildly decreased breath sounds but clear. Cardiac: irregular rhythm, 2/6 right upper sternal border crescendo decrescendo systolic ejection murmur possibly radiating to the right carotid, no diastolic murmur. Abdomen: benign. Extremities: Right arm in a cast (radial fracture), pulses intact. Neurologic: normal affect and conversation, nonfocal. Results & Data Laboratory Results Hemoglobin 9.1. Normal electrolytes, BUN 20, creatinine 0.77. Diagnostic Findings ECG showed atrial fibrillation with ventricular rate of 55 bpm, diffuse nonspecific T wave flattening. Compared with 08/21/2023 study, ventricular rate has decreased by 38 bpm and QT is shortened. PG Care Time/CCT Total # of Minutes Spent Total Time Spent with Patient: Total time spent is greater than 50% in coordination of care (as documented) at patient's floor/unit and/or counseling patient: Coding Level of Care Code 23579 SUB INP/OBS CARE 2/35MIN Diagnoses Syncope R55 Status post fall Z91.81 Bradycardia R00.1 Afib I48.91
[2023-08-23] MEDS: RIVAROXABAN 15 MG TAB PO SCH (17:04)
[2023-08-24 06:58] LABS: Partial Thromboplastin Ratio 1.2; Partial Thromboplastin Time 31 Seconds (21-31)
--- NOTE | 2023-08-24 10:11 | Hospitalist Progress Note ---
Date of Service August 24, 2023 Assessment & Plan (1) Hypotension: (2) Bradycardia: (3) Afib: (4) CHI (closed head injury): (5) Radius distal fracture: (6) Chronic anticoagulation: (7) Status post fall: Plan 88 yo female PMHx a fib on Xarelto, HTN, glaucoma admitted after fall and head strike with R arm injury. Currently ICU status, will resume primary management at time of downgrade. #Bradycardia/Hypotension/afib BP stable dc antiarrhythmic indefinitely metoprolol for rate control if needed Xarelto continue to monitor for symptomatic events/need for pacemaker #Anemia blood loss vs dilutional Hb stable #Closed Head Injury CT w/o fracture #Distal radial fracture Currently splinted Repeat XR August 27-, f/u w/ Dr. Perez Pain control PRN #s/p fall PT/OT - recommend rehab Anticipate encompass when bed becomes available FENGI: Heart healthy Code status: full code DVT prophylaxis: Xarelto Isolation: none Disposition: med/tele Admission and Anticipated Discharge Date Admission Date: August 21, 2023 Supervising Physician Co-Signing Physician Notes Attending Physician Supervision Note: I independently interviewed and examined the patient and verified the altamirano history and physical, reviewed labs and image studies and agree with findings and care plan noted above. Symptomatic bradycardia with asystole needing CPR - has been on multaq for rate control. Chronic h/o significant vasovagal response. lately having gagging sensation due to postnasal drip. -Echo normal EF. -multaq d/roby. -hold lisinopril for permissive hypertension to allow room for BP drop during vasovagal events. -maintain liberal salt intake. -If presyncope/syncope recurs, depending upon whether bradycardia or vasodepressor component predominates, decide on pacemaker versus fludrocortisone. Permanent a fib -d/roby multaq. if she becomes tachycardic - add metoprolol. -resumed xarelto Postnasal drip - improved with addition of azelastine nasal spray harjit and Afrin prn for maximum 2-day use Distal radius/ulna fracture - splint placed by ortho. Head injury with scalp hematoma- stable Anemia - h/h stable awaiting rehab placement Subjective Patient seen and evaluated at bedside this morning. No acute events overnight. Eager to start rehab. BP and HR stable. Review of Systems Review of Systems: reviewed, per HPI Physical Exam Physical Exam: Constitutional: NAD HEENT: NCAT, no conjunctival injection CV: extremities well-perfused, no LE edema MSK: R forearm in charissa bandage Skin: warm, dry, no rash appreciated Neuro: alert, oriented, no focal neurologic deficit appreciated Results & Data Results & Data Vital Signs (Past 12 Hours) Vital Signs Temp Pulse Pulse Resp BP Pulse Ox O2 Del Method 08/24/23 07:50 36.5 C 66 20 131/82 93 Room Air 08/24/23 03:50 36.4 C L 54 L 18 104/66 93 Room Air 08/23/23 23:33 70 08/23/23 23:10 36.6 C 69 18 124/72 93 Room Air 08/23/23 22:08 Room Air Resident Activity Tracking Resident Involvement: Resident Care Provided Care Provided: Adult Hospital Medicine
[2023-08-25 07:02] LABS: Albumin Globulin Ratio 1.4 (0.9-2); Albumin Level 2.9 gm/dl (3.4-5.0); BUN Creatinine Ratio 29.5 (10-20); Bilirubin,Total 0.5 mg/dl (0.2-1.0); Creatinine Clr Calc Pharmacy 62.4 ml/min; Est GFR (African American) 93.2 ml/min; Est GFR (Non-African American) 80.4 ml/min; Globulin 2.1 gm/dl (2.5-4.0); Magnesium 1.8 mg/dl (1.7-2.4); Phosphorus 3.1 mg/dl (2.5-4.9)
--- NOTE | 2023-08-25 13:55 | Hospitalist Progress Note ---
Date of Service August 25, 2023 Assessment & Plan (1) Hypotension: (2) Bradycardia: (3) Afib: (4) CHI (closed head injury): (5) Radius distal fracture: (6) Chronic anticoagulation: (7) Status post fall: Plan 88 yo female PMHx a fib on Xarelto, HTN, glaucoma admitted after fall and head strike with R arm injury. Currently ICU status, will resume primary management at time of downgrade. Stable for dc to rehab when bed becomes available #Bradycardia/Hypotension/afib BP stable dc antiarrhythmic indefinitely metoprolol for rate control if needed Xarelto continue to monitor for symptomatic events/need for pacemaker #Anemia blood loss vs dilutional Hb stable #Closed Head Injury CT w/o fracture #Distal radial fracture Currently splinted Repeat XR August 27-, f/u w/ Dr. Perez Pain control PRN #s/p fall PT/OT - recommend rehab Anticipate encompass when bed becomes available FENGI: Heart healthy Code status: full code DVT prophylaxis: Xarelto Isolation: none Disposition: med/tele Admission and Anticipated Discharge Date Admission Date: August 21, 2023 Supervising Physician Co-Signing Physician Notes Attending Physician Supervision Note: I independently interviewed and examined the patient and verified the altamirano history and physical, reviewed labs and image studies and agree with findings and care plan noted above. Symptomatic bradycardia with asystole needing CPR - has been on multaq for rate control. Chronic h/o significant vasovagal response. -Echo normal EF. -multaq d/roby. -d/c lisinopril for permissive hypertension to allow room for BP drop during vasovagal events. -maintain liberal salt intake. Permanent a fib -d/roby multaq. if she becomes tachycardic - add metoprolol. -resumed xarelto Postnasal drip - improved with addition of azelastine nasal spray harjit and Afrin prn for maximum 2-day use -gagging from PND contributor to flare up of vasovagal component. Distal radius/ulna fracture - splint placed by ortho. will need outpatient follow up Head injury with scalp hematoma- stable Anemia - h/h stable awaiting rehab placement Subjective Patient seen and evaluated at bedside this morning. No acute events overnight. Eager to start rehab. Continues to have episodes of bradycardia to high 30s, brief. Review of Systems Review of Systems: reviewed, per HPI Physical Exam Physical Exam: Constitutional: NAD HEENT: NCAT, no conjunctival injection CV: extremities well-perfused, no LE edema MSK: R forearm in charissa bandage Skin: warm, dry, no rash appreciated Neuro: alert, oriented, no focal neurologic deficit appreciated Results & Data Results & Data Vital Signs (Past 12 Hours) Vital Signs Temp Pulse Resp BP Pulse Ox O2 Del Method O2 Del Method 08/25/23 11:46 36.6 C 85 20 105/72 93 Room Air 08/25/23 08:06 36.6 C 66 20 126/78 90 Room Air 08/25/23 04:00 Room Air 08/25/23 03:50 36.5 C 55 L 19 121/72 93 Room Air Resident Activity Tracking Resident Involvement: Resident Care Provided Care Provided: Adult Hospital Medicine
--- NOTE | 2023-08-25 18:41 | Electrocardiogram Report ---
Test Reason : Blood Pressure : / mmHG Vent. Rate : 071 BPM Atrial Rate : 038 BPM P-R Int : 000 ms QRS Dur : 082 ms QT Int : 416 ms P-R-T Axes : 000 047 -31 degrees QTc Int : 452 ms Atrial fibrillation Low voltage QRS Nonspecific ST and T wave abnormality Abnormal ECG When compared with ECG of 21-AUG-2023 01:27, No significant change Confirmed by Chuck Malloy ([id number]) on 08/25/2023 6:41:03 PM Referred By: REFERRED SELF Confirmed By:Chuck Malloy
--- NOTE | 2023-08-26 09:52 | Orthopedic Progress Note ---
Date of Service August 26, 2023 Assessment & Plan (1) Radius distal fracture: Plan: Patient has a nondisplaced right distal radius fracture. She can use a sling on her right upper extremity for comfort. No pushing, pulling or lifting with the right arm. She can weight-bear through her forearm using a platform walker for ambulation. Ice and elevate the right hand and fingers for swelling. Recommend follow-up with Dr. Perez in 7 to 10 days for repeat x-rays of the right wrist in the splint. Order for Right wrist x-rays tomorrow placed. Patient understands and agrees with the plan. Keep the splint on at all all times. Keep it clean and dry. Call [phone] with any questions or concerns. Dr. Perez present for today's visit. Admission and Anticipated Discharge Date Admission Date: August 21, 2023 Subjective This 88-year-old female is seen today for follow-up of a right distal radius fracture that is being treated nonoperatively with a sugar-tong splint. Patient states she really has no pain. She states she has been working on the mobility of her fingers. She has limited mobility in her shoulder due to rotator cuff insufficiency. She states she feels fine and understands that she will need to be go to rehab. Currently she denies chest pain, shortness of breath, fever, chills, sweats or numbness or tingling in her right upper extremity. Review of Systems Review of Systems: All systems reviewed & are unremarkable except as noted in Subjective Physical Exam Physical Exam: Right upper extremity: Splint that is clean dry and intact and left in place. Patient is neurovascularly intact in the right upper extremity. She has mobility of her fingers and is able to detect light sensation to touch over the pads of all digits. Range of motion of her shoulder actively is very limited however she has no significant discomfort with passive forward flexion, abduction and or with abducted internal or external rotation. Results & Data Vital Signs (Past 12 Hours) Vital Signs Temp Pulse Resp BP Pulse Ox O2 Del Method O2 Del Method 08/26/23 08:21 36.9 C 68 22 119/59 L 94 Room Air 08/26/23 04:13 36.4 C L 58 L 17 146/72 H 90 Room Air 08/26/23 04:00 Room Air 08/26/23 00:00 36.4 C L 59 L 20 124/73 93 Room Air Diagnostic Findings Laboratory Results WBC 4.66 K/ul (4.8-10.8) L 08/23/23 06:45 RBC 2.70 M/uL (4.20-5.40) L 08/23/23 06:45 Hgb 9.1 g/dl (12.0-16.0) L 08/23/23 06:45 POC Hgb 10.2 g/dl (12.0-16.0) L 08/21/23 02:06 Hct 27.8 % (37.0-47.0) L 08/23/23 06:45 POC Hct 30 % (37-47) L 08/21/23 02:06 MCV 103.0 fL (80.0-100.0) H 08/23/23 06:45 MCH 33.7 pg (25.0-34.0) 08/23/23 06:45 MCHC 32.7 g/dL (32.0-36.0) 08/23/23 06:45 RDW Std Deviation 53.6 fL (36.4-46.3) H 08/23/23 06:45 RDW Coeff of Jordan 14.1 % (11.5-14.5) 08/23/23 06:45 Plt Count 120 K/uL (130-400) L 08/23/23 06:45 MPV 10.7 fL (9.4-12.4) 08/23/23 06:45 Immature Gran % (Auto) 0.6 % 08/23/23 06:45 Neut % (Auto) 62.9 % 08/23/23 06:45 Lymph % (Auto) 23.0 % 08/23/23 06:45 Blount % (Auto) 8.8 % 08/23/23 06:45 Eos % (Auto) 3.4 % 08/23/23 06:45 Baso % (Auto) 1.3 % 08/23/23 06:45 Neut # (Auto) 2.93 K/uL (1.40-6.50) 08/23/23 06:45 Lymph # (Auto) 1.07 K/uL (1.20-3.40) L 08/23/23 06:45 Blount # (Auto) 0.41 K/uL (0.11-0.59) 08/23/23 06:45 Eos # (Auto) 0.16 K/uL (0.00-0.50) 08/23/23 06:45 Baso # (Auto) 0.06 K/uL (0.00-0.20) 08/23/23 06:45 Immature Gran # (Auto) 0.03 K/uL (0.01-0.20) 08/23/23 06:45 PT 11.1 Seconds (9.0-12.0) 08/23/23 06:45 INR 1.0 (0.9-1.1) 08/23/23 06:45 APTT 31 Seconds (21-31) 08/24/23 06:04 PTT Ratio 1.2 08/24/23 06:04 POC pH 7.44 (7.35-7.45) 08/21/23 02:06 POC pCO2 38 mmHg (35-46) 08/21/23 02:06 POC pO2 124 mmHg (80-95) H 08/21/23 02:06 POC HCO3 26 walter/L (19-24) H 08/21/23 02:06 POC Total CO2 27 mmol/L (24-31) 08/21/23 02:06 POC Base Excess 1.0 walter/L (-9-1.8) 08/21/23 02:06 POC ABG O2 Sat 99.0 % (90-95) H 08/21/23 02:06 POC Sodium 143 mmol/L (135-144) 08/21/23 02:06 Sodium 138 mmol/L (136-145) 08/25/23 05:56 POC Potassium 3.6 mmol/L (3.3-5.0) 08/21/23 02:06 Potassium 4.0 mmol/L (3.5-5.1) 08/25/23 05:56 Chloride 108 mmol/L (98-107) H 08/25/23 05:56 Carbon Dioxide 28 mmol/L (21-32) 08/25/23 05:56 Anion Gap 2 (3-11) L 08/25/23 05:56 BUN 18 mg/dl (6-23) 08/25/23 05:56 Creatinine 0.61 mg/dl (0.6-1.2) 08/25/23 05:56 Est Cr Clr Drug Dosing 62.4 ml/min 08/25/23 05:56 Est GFR ( Amer) 93.2 ml/min 08/25/23 05:56 Est GFR (Non-Af Amer) 80.4 ml/min 08/25/23 05:56 BUN/Creatinine Ratio 29.5 (10-20) H 08/25/23 05:56 Glucose 88 mg/dl (70-99(Fasting)) 08/25/23 05:56 POC Glucose 149 mg/dl (70-99) H 08/21/23 04:36 Calcium 9.0 mg/dl (8.6-10.3) 08/25/23 05:56 Phosphorus 3.1 mg/dl (2.5-4.9) 08/25/23 05:56 Magnesium 1.8 mg/dl (1.7-2.4) 08/25/23 05:56 Total Bilirubin 0.5 mg/dl (0.2-1.0) 08/25/23 05:56 AST 18 U/L (13-39) 08/25/23 05:56 ALT 9 U/L (7-52) 08/25/23 05:56 Alkaline Phosphatase 60 U/L (34-104) 08/25/23 05:56 Troponin I High Sens 4.9 pg/ml (0-14) 08/21/23 16:39 Total Protein 5.0 gm/dl (6.0-8.3) L 08/25/23 05:56 Albumin 2.9 gm/dl (3.4-5.0) L 08/25/23 05:56 Globulin 2.1 gm/dl (2.5-4.0) L 08/25/23 05:56 Albumin/Globulin Ratio 1.4 (0.9-2) 08/25/23 05:56 TSH 2.734 uIu/ml (0.300-4.500) 08/21/23 00:40 Nasal Screen MRSA (PCR) Negative (Negative) 08/21/23 03:30 Blood Type A Positive 08/21/23 04:31 Antibody Screen NEGATIVE 08/21/23 04:[address] 08/21/23 00:10 Exam(s): CT C SPINE EXAM: CT Cervical Spine Without Intravenous Contrast CLINICAL HISTORY: Reason for exam: trauma. TECHNIQUE: Axial computed tomography images of the cervical spine without intravenous contrast. CTDI is 26.61 mGy and DLP is 489.32 mGy-cm. Automated exposure control was utilized for the study. A dose lowering technique was utilized adhering to the principles of ALARA. COMPARISON: No relevant prior studies available. FINDINGS: The vertebral body heights are maintained. The craniocervical junction is intact. The atlanto-dens interval is maintained. The dens is intact. There is no spondylolisthesis. Multilevel cervical spondylosis and degenerative disc disease. Straightening of the cervical lordosis. The unenhanced neck soft tissues are grossly unremarkable. The visualized lung apices are grossly clear. IMPRESSION: No acute fracture or subluxation of the cervical spine. Electronically signed by: Levi Shelby MD 08/21/23 01:26 AM Chest X-Ray 08/21/23 00:10 XR chest 1V portable CLINICAL HISTORY: trauma TECHNIQUE: Single frontal radiograph of the chest was obtained. Comparison: None available at the time of this dictation. FINDINGS: Bilateral shoulder degenerative changes are seen. Calcified aortic knob is seen. Left retrocardiac opacity is seen. No evidence of pleural effusion or pneumothorax. IMPRESSION: Left retrocardiac opacity. This may represent atelectasis, pneumonia, and/or aspiration. ACT 112: Negative or not required by law. Electronically signed by: Carlos Leyva M.D. 08/21/2023 8:[address] 08/21/23 00:10 Exam(s): CT HEAD Without Contrast EXAM: CT Head Without Intravenous Contrast CLINICAL HISTORY: Reason for exam: trauma. TECHNIQUE: Axial computed tomography images of the head/brain without intravenous contrast. CTDI is 37.32 mGy and DLP is 624.41 mGy-cm. Automated exposure control was utilized for the study. A dose lowering technique was utilized adhering to the principles of ALARA. COMPARISON: No relevant prior studies available. FINDINGS: No acute intracranial hemorrhage. No midline shift or mass effect. The territorial gonzales-white matter differentiation is maintained throughout. Age-related cerebral volume loss. Periventricular and subcortical white matter hypoattenuation, consistent with chronic microangiopathy. The visualized orbits appear grossly unremarkable. The calvarium is intact. The visualized paranasal sinuses and mastoid air cells are grossly clear. IMPRESSION: No acute intracranial hemorrhage, midline shift, or mass effect. Electronically signed by: Levi Shelby MD 08/21/23 01:27 AM Hip/Pelvis X-Ray 08/21/23 00:10 XR hip RT 2V w pelvis CLINICAL HISTORY: Right hip pain following fall. COMPARISON: None FINDINGS: Sacroiliac joints and symphysis pubis are intact. There is no acute fracture within the pelvis or hips. Irregularity of the left greater trochanter is degenerative. There is a large amount of stool within the rectum. Moderate bilateral hip osteoarthritis is present. IMPRESSION: No acute fractures within the pelvis or hips. ACT 112: Negative or not required by law. Electronically signed by: Tyrese Woods M.D. 08/21/2023 7:23 AM Shoulder X-Ray 08/21/23 00:10 XR shoulder RT min 2V routine CLINICAL HISTORY: trauma COMPARISON: None FINDINGS: Surgical anchors within the right humeral head are present. There is severe narrowing of the glenohumeral joint with extensive osteophytosis and subchondral sclerosis. No acute fracture or dislocation within the right shoulder is present. IMPRESSION: 1. No fracture or dislocation within the right shoulder. 2. Severe right glenohumeral joint osteoarthritis. ACT 112: Negative or not required by law. Electronically signed by: Tyrese Woods M.D. 08/21/2023 7:25 AM Wrist X-Ray 08/21/23 00:10 XR wrist RT min 3V routine CLINICAL HISTORY: trauma TECHNIQUE: 4 views of the right wrist were obtained. Comparison: None available at the time of this dictation. FINDINGS: There is an impacted fracture of the distal radius with likely intra-articular extension. Distal ulnar fracture is also likely. Degenerative changes are seen in the carpal row and radiocarpal articulation. Soft tissue swelling is seen about the wrist. IMPRESSION: Impacted fracture of the distal radius and ulna. Severe degenerative changes, probable fractures cannot be entirely excluded. Soft tissue swelling is seen. ACT 112: Negative or not required by law. Electronically signed by: Carlos Leyva M.D. 08/21/2023 9:07 AM Abdomen/Pelvis CT 08/21/23 01:31 Exam(s): CT ABDOMEN + PELVIS With Contrast IV Amt: 93 ml optiray 320 EXAM: CT Chest, Abdomen and Pelvis With Intravenous Contrast CLINICAL HISTORY: Reason for exam: trauma. TECHNIQUE: Axial computed tomography images of the chest, abdomen and pelvis with intravenous contrast. CTDI is 27.93 mGy and DLP is 1195.03 mGy-cm. Automated exposure control was utilized for the study. A dose lowering technique was utilized adhering to the principles of ALARA. CONTRAST: Patient received 93 ml optiray 320 of IV contrast COMPARISON: No relevant prior studies available. FINDINGS: CHEST: Lungs: Right upper lobe pulmonary nodule measuring 6 x 5 mm as seen on series 2, image 31. Scattered areas of air-trapping within the lungs. Findings may be due to phase of expiration. Obstructive pulmonary disease is also possible. Dependent scarring and bronchiectasis at the lung bases which can be seen with infection/aspiration changes. Pleural space: No pneumothorax. No significant effusion. Heart: See below. Mediastinum: Large hiatal hernia. ABDOMEN: Liver: Low attenuation foci in the liver which may be due to cysts but are too small to characterize. Gallbladder and bile ducts: Cholecystectomy changes. No ductal dilation. Pancreas: Unremarkable. No ductal dilation. No mass. Spleen: Unremarkable. No splenomegaly. Adrenals: Unremarkable. No mass. Kidneys and ureters: Bilateral renal cysts mixed. No hydronephrosis. No solid mass. Stomach and bowel: Normal sigmoidectomy changes. Large fat and bowel containing ventral hernia noted overlying the pelvis. No evidence of bowel obstruction. PELVIS: Appendix: No findings to suggest acute appendicitis. Bladder: Unremarkable. No mass. Reproductive: Unremarkable as visualized. CHEST, ABDOMEN and PELVIS: Intraperitoneal space: Enteric anastomosis in the left hemiabdomen. No significant fluid collection. No free air. Bones/joints: Suture anchors at the right humerus. No rib fracture identified. No dislocation. Soft tissues: See above. Vasculature: No evidence of traumatic aortic injury. Please note that the ascending aorta is minimally limited by cardiac pulsation artifact. No aortic aneurysm. Lymph nodes: Unremarkable. No enlarged lymph nodes. IMPRESSION: 1. No acute traumatic findings within the chest, abdomen, or pelvis. If there is further concern for osseous trauma given bone demineralization, consider MRI. 2. No rib fracture identified. 3. No pneumothorax. 4. No evidence of traumatic aortic injury. Please note that the ascending aorta is minimally limited by cardiac pulsation artifact. 5. Right upper lobe pulmonary nodule measuring 6 x 5 mm as seen on series 2, image 31. Fleischner Society Guidelines for low-risk or high- risk patients suggest that no follow-up is necessary. 6. Dependent scarring and bronchiectasis at the lung bases which can be seen with infection/aspiration changes. 7. Other incidental findings as described. Electronically signed by: Jorgito Gutierrez MD 08/21/23 04:[address] 08/21/23 01:31 Exam(s): CT CHEST With Contrast IV Amt: 93 ml optiray 320 EXAM: CT Chest, Abdomen and Pelvis With Intravenous Contrast CLINICAL HISTORY: Reason for exam: trauma. TECHNIQUE: Axial computed tomography images of the chest, abdomen and pelvis with intravenous contrast. CTDI is 27.93 mGy and DLP is 1195.03 mGy-cm. Automated exposure control was utilized for the study. A dose lowering technique was utilized adhering to the principles of ALARA. CONTRAST: Patient received 93 ml optiray 320 of IV contrast COMPARISON: No relevant prior studies available. FINDINGS: CHEST: Lungs: Right upper lobe pulmonary nodule measuring 6 x 5 mm as seen on series 2, image 31. Scattered areas of air-trapping within the lungs. Findings may be due to phase of expiration. Obstructive pulmonary disease is also possible. Dependent scarring and bronchiectasis at the lung bases which can be seen with infection/aspiration changes. Pleural space: No pneumothorax. No significant effusion. Heart: See below. Mediastinum: Large hiatal hernia. ABDOMEN: Liver: Low attenuation foci in the liver which may be due to cysts but are too small to characterize. Gallbladder and bile ducts: Cholecystectomy changes. No ductal dilation. Pancreas: Unremarkable. No ductal dilation. No mass. Spleen: Unremarkable. No splenomegaly. Adrenals: Unremarkable. No mass. Kidneys and ureters: Bilateral renal cysts mixed. No hydronephrosis. No solid mass. Stomach and bowel: Normal sigmoidectomy changes. Large fat and bowel containing ventral hernia noted overlying the pelvis. No evidence of bowel obstruction. PELVIS: Appendix: No findings to suggest acute appendicitis. Bladder: Unremarkable. No mass. Reproductive: Unremarkable as visualized. CHEST, ABDOMEN and PELVIS: Intraperitoneal space: Enteric anastomosis in the left hemiabdomen. No significant fluid collection. No free air. Bones/joints: Suture anchors at the right humerus. No rib fracture identified. No dislocation. Soft tissues: See above. Vasculature: No evidence of traumatic aortic injury. Please note that the ascending aorta is minimally limited by cardiac pulsation artifact. No aortic aneurysm. Lymph nodes: Unremarkable. No enlarged lymph nodes.
--- NOTE | 2023-08-26 13:39 | Hospitalist Progress Note ---
Date of Service August 26, 2023 Assessment & Plan (1) Hypotension: (2) Bradycardia: (3) Afib: (4) CHI (closed head injury): (5) Radius distal fracture: (6) Chronic anticoagulation: (7) Status post fall: Plan 88 yo female PMHx a fib on Xarelto, HTN, glaucoma admitted after fall and head strike with R arm injury. Currently ICU status, will resume primary management at time of downgrade. Stable for dc to rehab when bed becomes available #Bradycardia/Hypotension/afib BP stable dc antiarrhythmic indefinitely metoprolol for rate control if needed Xarelto continue to monitor for symptomatic events/need for pacemaker #Anemia blood loss vs dilutional Hb stable #Closed Head Injury CT w/o fracture #Distal radial fracture Currently splinted Repeat XR August 27-, f/u w/ Dr. Perez Pain control PRN #s/p fall PT/OT - recommend rehab Anticipate encompass when bed becomes available FENGI: Heart healthy Code status: full code DVT prophylaxis: Xarelto Isolation: none Disposition: med/tele Admission and Anticipated Discharge Date Admission Date: August 21, 2023 Supervising Physician Co-Signing Physician Notes I personally examined the patient and verified all altamirano points of history and exam, discussed case, and agree with decision making with Dr Crane No new problems. For rehab placement today. Vitals noted, in general she is awake and alert pleasant no distress. HEENT normocephalic atraumatic mucous membranes moist. Breathing unlabored no accessory muscle use good effort. Skin shows no rashes no pallor or icterus. Symptomatic bradycardia with asystole needing CPR - has been on multaq for rate control. Chronic h/o significant vasovagal response. -Echo normal EF. -multaq d/roby. -d/c'd lisinopril for permissive hypertension to allow room for BP drop during vasovagal events. -maintain liberal salt intake. - Close outpatient follow-up Permanent a fib -d/roby multaq. if she becomes tachycardic - can add metoprolol. -resumed xarelto - close outpatient follow-up Postnasal drip - improved with addition of azelastine nasal spray harjit and Afrin prn for maximum 2-day use -gagging from PND contributor to flare up of vasovagal component. can continue azelastine Distal radius/ulna fracture - splint placed by ortho. will need outpatient follow up Head injury with scalp hematoma- stable Anemia - h/h stable for rehab today Subjective Patient seen and evaluated at bedside this morning. No acute events overnight. Eager to start rehab. Review of Systems Review of Systems: reviewed, per HPI Physical Exam Physical Exam: Constitutional: NAD HEENT: NCAT, no conjunctival injection CV: extremities well-perfused, no LE edema MSK: R forearm in charissa bandage Skin: warm, dry, no rash appreciated Neuro: alert, oriented, no focal neurologic deficit appreciated Results & Data Results & Data Vital Signs (Past 12 Hours) Vital Signs Temp Pulse Resp BP Pulse Ox O2 Del Method O2 Del Method 08/26/23 08:21 36.9 C 68 22 119/59 L 94 Room Air 08/26/23 04:13 36.4 C L 58 L 17 146/72 H 90 Room Air 08/26/23 04:00 Room Air Resident Activity Tracking Resident Involvement: Resident Care Provided Care Provided: Adult Hospital Medicine
--- NOTE | 2023-08-26 16:42 | Billing Data ---
Date of Service August 26, 2023 Coding Level of Care Code 40471 IN/OBS DISCH 30 MIN/LESS
--- NOTE | 2023-09-05 05:57 | Coding Query ---
CODING QUERY To promote full compliance with coding requirements relating to patient care, provider participation is requested in all cases of silver solderer uncertainty. Please assist us with the question(s) below: Coding Question(s): The event below is described differently throughout the record, including as cardiac arrest, symptomatic bradycardia, and asystole needing CPR. In your clinical opinion, could you please clarify if the below documentation represents: Cardiac Arrest () Symptomatic Bradycardia (without true cardiac arrest) () Asystole needing CPR (without true cardiac arrest) ()x Other, please specify () Per the ER report, "[id number]: Geovanni cee called after patient was having xrays performed in the room and began to cathleen down and reported to medical office technician "I'm going out". She became unresponsive and became asystolic. CPR started by staff and geovanni cee called. Patient received 10-15 seconds of chest compressions and regained pulse and consciousness. She was given atropine and bedside and additional IVF started. Physician's Response(s): Thank you Mamie Woo Principal Diagnosis: "that condition established after study, to be chiefly responsible for occasioning the admission of the patient to the hospital for care." Co-Existing Principal Diagnosis: "when two or more diagnoses equally meet the criteria for principal diagnosis as determined by the circumstances of admission, diagnostic work up, and/or therapy provided, and the Alphabetic Index, Tabular List, or another coding guideline does not provide sequencing direction, any one of the diagnoses may be sequenced first." "When the physician has documented what appears to be a current diagnosis in the body of the record, but has not included the diagnosis in the final diagnostic statement, the physician should be asked whether the diagnosis should be added." (Source Coding [facility] 2 QTR90. p3-4) BEBETO
== END 2023-08-26 17:42 | DRG 309 ==
LOC: ED 23:24 → 1E 08-21 02:10 → SUATTDRO 08-21 02:10 → 1E 08-21 03:34 → 2E 08-22 22:20